=== PATIENT | male | born 1960 | race Hispanic/Latino ===

== ENCOUNTER 2019-04-09 12:28 | Inpatient (IN) | payer BC ==
[2019-04-09] MEDS ORDERED: NA CHLORIDE 0.9% 1,000 ML ONE (13:02)
[2019-04-09 13:22] LABS: Absolute Lymphocytes (CBC) 2.3 K/uL (0.7-4.9); Basophils % 0.2 % (0-1.3); Hematocrit 34.1 % (39.6-49.0); Lymphocytes % 17.8 % (15.3-44.8); MPV 8.6 fL (7.6-11.3); RBC Red Blood Cell Count 3.69 M/uL (4.33-5.43)
[2019-04-09 13:28] LABS: Protime INR 1.04
[2019-04-09 13:59] LABS: ALT/SGPT 19 U/L (12-78); AST/SGOT 21 U/L (15-37); Albumin 4.1 g/dL (3.4-5.0); Alkaline Phosphatase 83 U/L (45-117); BUN Blood Urea Nitrogen 65 mg/dL (7-18); Bicarbonate 16 mmol/L (21-32); Bilirubin Direct 0.1 mg/dL (0-0.2); Bilirubin Total 0.3 mg/dL (0.2-1.0); Glucose Level 96 mg/dL (74-106); Magnesium 2.5 mg/dL (1.8-2.4); NT PRO-BNP 94 pg/mL (<125); Protein, Total 9.7 g/dL (6.4-8.2); Sodium Level 135 mmol/L (136-145); Troponin (Emerg Dept Use Only) < 0.02 ng/mL (0.0-0.045)
[2019-04-09 14:00] LABS: Potassium 6.2 mmol/L (3.5-5.1)
--- NOTE | 2019-04-09 14:02 | RAD REPORT ---
EXAM DESCRIPTION: Deepti Single View04/09/2019 1:20 pm CLINICAL HISTORY: Congestion COMPARISON: November 2017 FINDINGS: Lung apices are hazy. Remainder lungs appear clear. Heart is normal size IMPRESSION: Lung apices are hazy. This probably is secondary to positioning. However, as an infiltra te can have this appearance it is recommended patient have an apical lordotic view of the chest for f urther evaluation
[2019-04-09] MEDS ORDERED: Caclcium Chloride 10% INJ SYR IV ONE (14:15)
[2019-04-09] MEDS ORDERED: NA CHLORIDE 0.9% 100 ML IV ONE (14:16)
[2019-04-09] MEDS ORDERED: INSULIN -REGULAR HUMAN 50 UNIT/0.5 ML ML ONE (14:29)
[2019-04-09] MEDS ORDERED: IPRATROPIUM BROM 0.5MG/2.5ML ONE (14:30)
[2019-04-09] MEDS ORDERED: D50W 25 GM/50 ML SYRINGE IV ONE (14:30)
[2019-04-09] MEDS ORDERED: ALBUTEROL 2.5 MG/3 ML NEB SOL ONE (14:30)
[2019-04-09] MEDS ORDERED: SOD POLYSTYREN SUL 15 GM/60 ML UCUP ONE (14:31)
[2019-04-09] MEDS ORDERED: D5W 1,000 ML with NA BICARB 8.4% 50 MEQ IV SCH ×2 (14:45)
--- NOTE | 2019-04-09 14:52 | EDPHYS ---
Physician Documentation [facility] Name: Darrius Barnes Age: 58 yrs Sex: Male : 1960 Arrival Date: 04/09/2019 Time: 12:32 Bed 17 Private MD: ED Physician Ramakrishna Ramon HPI: 04/09 14:50 This 58 yrs old Male presents to ER via Ambulatory with complaints of Blurred ma2 Vision, Weakness, Leg Pain. 14:50 Onset: The symptoms/episode began/occurred gradually, 2 day(s) ago. Associated signs ma2 and symptoms: Pertinent negatives: dizziness, nausea, seizure, visual field changes, loss of vision. Severity of symptoms: At their worst the symptoms were mild in the emergency department the symptoms are unchanged. Current symptoms: Currently, the patient is not experiencing any symptoms. Historical: - Allergies: 12:45 No Known Allergies; aa5 - PMHx: 12:45 Hypertension; "Kidney problems"; aa5 - PSHx: 12:45 Hernia repair; Appendectomy; Cholecystectomy; aa5 - Immunization history:: Adult Immunizations unknown. - Social history:: Smoking status: Patient/guardian denies using tobacco, the patient reports quitting approximately 10 years ago, Patient/guardian denies using alcohol, street drugs, The patient lives with family. - Ebola Screening: : No symptoms or risks identified at this time. - Family history:: not pertinent. ROS: 14:50 Constitutional: Negative for fever, chills, and weight loss, Cardiovascular: Negative ma2 for chest pain, palpitations, and edema, Respiratory: Negative for shortness of breath, cough, wheezing, and pleuritic chest pain, Abdomen/GI: Negative for abdominal pain, nausea, diarrhea, and constipation. 14:50 All other systems are negative. Exam: 14:50 Constitutional: This is a well developed, well nourished patient who is awake, alert, ma2 and in no acute distress. Chest/axilla: Normal chest wall appearance and motion. Nontender with no deformity. No lesions are appreciated. Cardiovascular: Regular rate and rhythm with a normal S1 and S2. No gallops, murmurs, or rubs. Normal PMI, no JVD. No pulse deficits. Respiratory: Lungs have equal breath sounds bilaterally, clear to auscultation and percussion. No rales, rhonchi or wheezes noted. No increased work of breathing, no retractions or nasal flaring. Abdomen/GI: Soft, non-tender, with normal bowel sounds. No distension or tympany. No guarding or rebound. No evidence of tenderness throughout. MS/ Extremity: Pulses equal, no cyanosis. Neurovascular intact. Full, normal range of motion. Neuro: Awake and alert, GCS 15, oriented to person, place, time, and situation. Cranial nerves II-XII grossly intact. Motor strength 5/5 in all extremities. Sensory grossly intact. Cerebellar exam normal. Normal gait. Vital Signs: 12:45 BP 102 / 68; Pulse 87; Resp 18 S; Temp 98.2; Pulse Ox 99% on R/A; Weight 97.52 kg (R); aa5 Height 5 ft. 4 in. (162.56 cm) (R); Pain 0/10; 14:00 BP 119 / 65; Pulse 71; Resp 16; Pulse Ox 100% on R/A; rv 15:00 BP 116 / 65; Pulse 68; Resp 16; Pulse Ox 98% on R/A; rv 15:30 BP 131 / 59; Pulse 91; Resp 19; Pulse Ox 100% on R/A; rv 16:40 BP 113 / 56; Pulse 86; Resp 17; Temp 98; Pulse Ox 100% on R/A; rv 12:45 Body Mass Index 36.90 (97.52 kg, 162.56 cm) aa5 MDM: 12:48 Patient medically screened. ma2 14:50 Data reviewed: vital signs, nurses notes, diagnostic data from outside facility. ma2 Response to treatment: the patient's symptoms have mildly improved after treatment. ED course: discussed with dr. ricketts . 04/09 13:03 Order name: Basic Metabolic Panel; Complete Time: 14:05 [facility] 04/09 13:03 Order name: CBC with Diff; Complete Time: 14: [facility] 04/09 13:03 Order name: LFT's; Complete Time: 14:05 [facility] 04/09 13:03 Order name: Magnesium; Complete Time: 14:05 [facility] 04/09 13:03 Order name: NT PRO-BNP; Complete Time: 14:05 [facility] 04/09 13:03 Order name: PT-INR [facility] 04/09 13:03 Order name: Troponin (emerg Dept Use Only); Complete Time: 14:05 ma2 04/09 13:03 Order name: XRAY Chest (1 view); Complete Time: 14:49 ma2 04/09 13:04 Order name: Glucose, Ancillary Testing; Complete Time: 14:05 EDMS 04/09 13:03 Order name: EKG; Complete Time: 13:04 ma2 04/09 13:03 Order name: Cardiac monitoring; Complete Time: 13:15 ma2 04/09 13:03 Order name: EKG - Nurse/Tech; Complete Time: 13:15 ma2 04/09 13:03 Order name: IV Saline Lock; Complete Time: 13:15 ma2 04/09 13:03 Order name: Labs collected and sent; Complete Time: 13:15 ma2 04/09 13:03 Order name: O2 Per Protocol; Complete Time: 13:15 ma2 04/09 13:03 Order name: O2 Sat Monitoring; Complete Time: 13:15 ma2 Administered Medications: 13:15 Drug: NS 0.9% 1000 ml Route: IV; Rate: 1 bolus; Site: right forearm; rv 14:51 Follow up: IV Status: Completed infusion; IV Intake: 1000ml rv 14:10 CANCELLED (other intervention used): NS 0.9% 1000 ml IV at 1 bolus Per protocol; 1000 snw mL bolus 14:15 CANCELLED (not available): Calcium Gluconate 1 grams IVPB once over 60 mins; (mix in NS snw 100 mL) 14:30 Drug: Calcium Chloride 1 grams Route: IVP; Site: right antecubital; rv 16:21 Follow up: Response: No adverse reaction rv 14:45 Drug: Albuterol - atroVENT (3:1) (2.5 mg - 0.5 mg) 3 ml Route: Nebulizer; rv 16:43 Follow up: Response: No adverse reaction rv 14:45 Drug: D5W with Sodium Bicarbonate 50 mEq/L 1000 ml Route: IV; Rate: 200 ml/hr; Site: rv right antecubital; 16:42 Follow up: IV Status: Infusion continued upon admission rv 14:51 Drug: D50W 50 ml Route: IVP; Site: left antecubital; rv 16:43 Follow up: Response: No adverse reaction rv 14:51 Drug: Insulin Regular Human 10 units {Co-Signature: ss (Sophia Mattson RN).} Route: IVP; rv Site: left antecubital; 16:43 Follow up: Response: No adverse reaction rv 14:52 Drug: Kayexalate 30 grams Route: PO; rv 16:43 Follow up: Response: No adverse reaction rv 14:53 Drug: NS 0.9% 500 ml Route: IV; Rate: bolus; Site: left antecubital; rv 16:42 Follow up: IV Status: Completed infusion rv Disposition: 04/09/19 14:52 Hospitalization ordered by Niraj Ricketts for Inpatient Admission. Preliminary diagnosis are Acute kidney failure, Hyperkalemia. - Bed requested for Telemetry/MedSurg (Inpatient). - Status is Inpatient Admission. rv - Condition is Stable. - Problem is new. - Symptoms are unchanged. UTI on Admission? No Signatures: Dispatcher [employer] EDMS Nori Morales RN RN dw Therrien, Shelly, BULLDOZER MECHANIC-C BULLDOZER MECHANIC-Csnw Asha Raines RN RN aa5 Ramakrishna Ramon MD MD ma2 Neal Foss RN RN rv Sophia brown Corrections: (The following items were deleted from the chart) 14:10 14:09 NS 0.9% 1000 ml IV at 1 bolus Per protocol; 1000 mL bolus ordered. snw snw 14:15 14:09 Calcium Gluconate 1 grams IVPB once over 60 mins; (mix in NS 100 mL) ordered. snw sn 14:51 14:51 04/09/2019 14:51 Discharged to Home. Impression: Acute kidney failure; ma2 Hyperkalemia. Condition is Stable. Forms are Medication Reconciliation Form, Thank You Letter, Antibiotic Education, Prescription Opioid Use. Follow up: Private Physician; When: Tomorrow; Reason: Continuance of care. ma2 16:15 14:52 Hospitalization Ordered by Niraj Ricketts MD for Inpatient Admission. Preliminary dw diagnosis is Acute kidney failure; Hyperkalemia. Bed requested for Telemetry/MedSurg (Inpatient). Status is Inpatient Admission. Condition is Stable. Problem is new. Symptoms are unchanged. UTI on Admission? No. ma2 16:43 16:15 04/09/2019 14:52 Hospitalization Ordered by Niraj Ricketts MD for Inpatient rv Admission. Preliminary diagnosis is Acute kidney failure; Hyperkalemia. Bed requested for Telemetry/MedSurg (Inpatient). Status is Inpatient Admission. Condition is Stable. Problem is new. Symptoms are unchanged. UTI on Admission? No. dw
--- NOTE | 2019-04-09 14:52 | ER ---
Nurse's Notes [facility] Name: Darrius Barnes Age: 58 yrs Sex: Male : 1960 Arrival Date: 04/09/2019 Time: 12:32 Bed 17 Private MD: Diagnosis: Acute kidney failure;Hyperkalemia Presentation: 04/09 12:42 Presenting complaint: Patient states: "I was at work when my vision started getting aa5 blurry, my arms and legs cramping, both of my arms felt heavy and I felt on my back like I was carrying something heavy". Pt reports symptoms lasted approximately 20 minutes. Pt states "I just feel weak right now". Transition of care: patient was not received from another setting of care. Onset of symptoms was March 2019. Risk Assessment: Do you want to hurt yourself or someone else? Patient reports no desire to harm self or others. Initial Sepsis Screen: Does the patient meet any 2 criteria? No. Patient's initial sepsis screen is negative. Does the patient have a suspected source of infection? No. Patient's initial sepsis screen is negative. Care prior to arrival: None. 12:42 Acuity: GARY 3 aa5 12:42 Method Of Arrival: Ambulatory aa5 Historical: - Allergies: 12:45 No Known Allergies; aa5 - PMHx: 12:45 Hypertension; "Kidney problems"; aa5 - PSHx: 12:45 Hernia repair; Appendectomy; Cholecystectomy; aa5 - Immunization history:: Adult Immunizations unknown. - Social history:: Smoking status: Patient/guardian denies using tobacco, the patient reports quitting approximately 10 years ago, Patient/guardian denies using alcohol, street drugs, The patient lives with family. - Ebola Screening: : No symptoms or risks identified at this time. - Family history:: not pertinent. Screenin:17 Abuse screen: Denies threats or abuse. Denies injuries from another. Nutritional rv screening: No deficits noted. Tuberculosis screening: No symptoms or risk factors identified. Fall Risk None identified. Assessment: 13:16 General: Appears in no apparent distress. comfortable, Behavior is calm, cooperative. rv Pain: Complains of pain in right leg and left leg. Neuro: Level of Consciousness is awake, alert, obeys commands, Oriented to person, place, time, situation. Cardiovascular: Patient's skin is warm and dry. Respiratory: Airway is patent. GI: No signs and/or symptoms were reported involving the gastrointestinal system. : No signs and/or symptoms were reported regarding the genitourinary system. EENT: No signs and/or symptoms were reported regarding the EENT system. Derm: Skin is intact. Musculoskeletal: Reports weakness in generalized. 15:01 Reassessment: Patient appears in no apparent distress at this time. Patient and/or rv family updated on plan of care and expected duration. Pain level reassessed. Patient is alert, oriented x 3, equal unlabored respirations, skin warm/dry/pink. Vital Signs: 12:45 BP 102 / 68; Pulse 87; Resp 18 S; Temp 98.2; Pulse Ox 99% on R/A; Weight 97.52 kg (R); aa5 Height 5 ft. 4 in. (162.56 cm) (R); Pain 0/10; 14:00 BP 119 / 65; Pulse 71; Resp 16; Pulse Ox 100% on R/A; rv 15:00 BP 116 / 65; Pulse 68; Resp 16; Pulse Ox 98% on R/A; rv 15:30 BP 131 / 59; Pulse 91; Resp 19; Pulse Ox 100% on R/A; rv 16:40 BP 113 / 56; Pulse 86; Resp 17; Temp 98; Pulse Ox 100% on R/A; rv 12:45 Body Mass Index 36.90 (97.52 kg, 162.56 cm) aa5 ED Course: 12:32 Patient arrived in ED. mr 12:44 Triage completed. aa5 12:44 Arm band placed on. aa5 12:48 Ramakrishna Ramon MD is Attending Physician. ma2 13:10 Neal Foss RN is Primary Nurse. rv 13:13 Inserted saline lock: 22 gauge in right forearm, using aseptic technique. Blood rv collected. 13:17 Patient has correct armband on for positive identification. Bed in low position. Call rv light in reach. Side rails up X 1. Adult w/ patient. gambling monitor on. Pulse ox on. NIBP on. 13:36 XRAY Chest (1 view) In Process Unspecified. EDMS 14:51 Niraj Ricketts MD is Hospitalizing Provider. ma2 15:03 Inserted saline lock: 18 gauge in left antecubital area, using aseptic technique. rv 16:40 No provider procedures requiring assistance completed. Patient admitted, IV remains in rv place. Administered Medications: 13:15 Drug: NS 0.9% 1000 ml Route: IV; Rate: 1 bolus; Site: right forearm; rv 14:51 Follow up: IV Status: Completed infusion; IV Intake: 1000ml rv 14:10 CANCELLED (other intervention used): NS 0.9% 1000 ml IV at 1 bolus Per protocol; 1000 snw mL bolus 14:15 CANCELLED (not available): Calcium Gluconate 1 grams IVPB once over 60 mins; (mix in NS snw 100 mL) 14:30 Drug: Calcium Chloride 1 grams Route: IVP; Site: right antecubital; rv 16:21 Follow up: Response: No adverse reaction rv 14:45 Drug: Albuterol - atroVENT (3:1) (2.5 mg - 0.5 mg) 3 ml Route: Nebulizer; rv 16:43 Follow up: Response: No adverse reaction rv 14:45 Drug: D5W with Sodium Bicarbonate 50 mEq/L 1000 ml Route: IV; Rate: 200 ml/hr; Site: rv right antecubital; 16:42 Follow up: IV Status: Infusion continued upon admission rv 14:51 Drug: D50W 50 ml Route: IVP; Site: left antecubital; rv 16:43 Follow up: Response: No adverse reaction rv 14:51 Drug: Insulin Regular Human 10 units {Co-Signature: ss (Sophia Mattson RN).} Route: IVP; rv Site: left antecubital; 16:43 Follow up: Response: No adverse reaction rv 14:52 Drug: Kayexalate 30 grams Route: PO; rv 16:43 Follow up: Response: No adverse reaction rv 14:53 Drug: NS 0.9% 500 ml Route: IV; Rate: bolus; Site: left antecubital; rv 16:42 Follow up: IV Status: Completed infusion rv Intake: 14:51 IV: 1000ml; Total: 1000ml. rv Outcome: 14:51 Discharge ordered by . kathy 14:52 Decision to Hospitalize by Provider. maJas 16:40 Admitted to Tele accompanied by nurse, via wheelchair, room 410, with chart, Report rv called to ROBIN DONALDSON 16:40 Condition: good 16:40 Instructed on the need for admit. 16:43 Patient left the ED. rv Signatures: Dispatcher [employer] Kaela McallisterAsha, RN RN aa5 Ramakrishna Ramon MD MD ma2 Neal Foss RN RN rv Mony Ward FORKLIFT MATERIAL HANDLER-Csnw Sophia Mattson RN ss Corrections: (The following items were deleted from the chart) 12:59 12:42 Presenting complaint: Patient states: "I was at work when my vision started aa5 getting blurry, my arms and legs cramping, both of my arms felt heavy and I felt on my back like I was carrying something heavy". Pt reports symptoms lasted approximately 20 minutes. aa5 16:41 16:40 Instructed on the need for transfer, rv rv
[2019-04-09] MEDS ORDERED: NA CHLORIDE 0.9% 500 ML ONE (14:54)
--- NOTE | 2019-04-09 15:29 | EKG ---
Test Date: 2019-04-09 Test Time: 13:12:36 [employer]oured [employer]ort: BEKAH MEASUREMENT RESULTS: Intervals: Rate: 79 OK: 138 QRSD: 76 QT: 344 QTc: 394 [place]: P: 61 OK: 138 QRS: 59 T: 68 INTERPRETIVE STATEMENTS: Normal sinus rhythm Normal ECG No previous ECG available for comparison Electronically Signed On 04-09-19 15:28:27 CDT by Manuel Carter
[2019-04-09] MEDS ORDERED: ONDANSETRON 4 MG/2 ML VIAL IV PRN (16:28)
[2019-04-09] MEDS ORDERED: ENOXAPARIN 40 MG/0.4 ML SQ SCH (17:00)
[2019-04-09 17:49] LABS: Urine Blood TRACE (NEG); Urine Glucose TRACE (NEG); Urine Protein TRACE (NEG)
--- NOTE | 2019-04-09 18:03 | P.HP ---
Certification for Inpatient Patient admitted to: Inpatient With expected LOS: >2 Midnights Practitioner: I am a practitioner with admitting privileges, knowledge of patient current condition, hospital course, and medical plan of care. Services: Services provided to patient in accordance with Admission requirements found in Title 42 Section 412.3 of the Code of Federal Regulations Patient History Date of Service: 04/09/19 Primary Care Provider: None Reason for admission: Generalized weakness History of Present Illness: This is a 58-year-old male with past medical history of CKD, hypertension admitted for generalized weakness. Per patient, he started having generalized weakness, blurring of the vision, stiff shoulder, cramps for the past 2 weeks that have been progressively worsening. He got really bad this morning therefore he came to the ER. He states that he had been working out in the heat and since is patient went a little blurry he decided to come to the ER. In the ER his blood pressure was 102/68, heart rate of 87, respirations of 18, afebrile at 98.2, satting 99% on room air. He has a BMI of 36.90. His labs were remarkable for a creatinine of 5.07, BUN of 65, potassium of 6.2 and a WBC count of 12.9. His magnesium was also elevated at 2.5. His chest x-ray showed haziness in the lung apices, could be secondary to position versus possible infiltrates. In the ER, he received a L bolus of IV fluids, Kayexalate, 10 units of insulin. At the time of my exam, he was alert oriented x3, in no acute distress and hemodynamically stable. He stated that his symptoms had drastically improved and he felt a lot better. He was admitted for acute renal failure along with hyperkalemia. Allergies No Known Allergies Allergy (Verified 04/09/19 17:17) Home medications list reviewed: Yes Home Medications: Lisinopril [Prinivil*] 1 tab PO DAILY 04/09/19 Losartan Potassium [Cozaar] 1 tab PO DAILY 04/09/19 - Past Medical/Surgical History Has patient received pneumonia vaccine in the past: No Diabetic: No -: hypertension -: kidney disease -: anemia -: appendectomy -: umbilical hernnia repair - Family History Mother -: Diabetes, Cancer Notes: breast cancer Father -: Heart disease, Hypertension Notes: emphysema, Ghislaine Gehrig's disease, shingles - Social History Smoking Status: Former smoker Alcohol use: Yes CD- Drugs: No Caffeine use: Yes Place of Residence: Home Review of Systems 10-point ROS is otherwise unremarkable Physical Examination - Vital Signs Temperature: 97.5 F Blood Pressure: 107/56 Pulse: 86 Respirations: 18 Pulse Ox (%): 100 - Physical Exam General: Alert, In no apparent distress, Oriented x3 HEENT: Atraumatic, PERRLA, Mucous membr. moist/pink, EOMI, Sclerae nonicteric Neck: Supple, 2+ carotid pulse no bruit, No LAD, Without JVD or thyroid abnormality Respiratory: Clear to auscultation bilaterally, Normal air movement Cardiovascular: Regular rate/rhythm, Normal S1 S2 Gastrointestinal: Normal bowel sounds, No tenderness Musculoskeletal: No tenderness Integumentary: No rashes Neurological: Normal gait, Normal speech, Normal strength at 5/5 x4 extr, Normal tone, Normal affect Lymphatics: No axilla or inguinal lymphadenopathy - Studies Laboratory Data (last 24 hrs) 04/09/19 13:13: PT 12.3, INR 1.04 04/09/19 13:13: WBC 12.9 H, Hgb 11.1 L, Hct 34.1 L, Plt Count 247 04/09/19 13:13: Sodium 135 L, Potassium 6.2 H*, BUN 65 H, Creatinine 5.07 H*, Glucose 96, Magnesium 2.5 H, Total Bilirubin 0.3, AST 21, ALT 19, Alkaline Phosphatase 83 Assessment and Plan - Problems (Diagnosis) (1) Acute renal failure Current Visit: Yes Status: Acute Qualifiers: Acute renal failure type: unspecified Qualified Code(s): N17.9 - Acute kidney failure, unspecified (2) Hyperkalemia Current Visit: Yes Status: Acute (3) Hypermagnesemia Current Visit: Yes Status: Acute (4) Dehydration Current Visit: Yes Status: Acute (5) Chronic kidney disease Current Visit: Yes Status: Acute Qualifiers: Chronic kidney disease stage: unspecified stage Qualified Code(s): N18.9 - Chronic kidney disease, unspecified (6) Hypertension Current Visit: Yes Status: Chronic Qualifiers: Hypertension type: essential hypertension Qualified Code(s): I10 - Essential (primary) hypertension (7) Obesity (BMI 35.0-39.9 without comorbidity) Current Visit: No Status: Chronic (8) Abnormal chest x-ray Current Visit: Yes Status: Acute - Plan Symptoms likely secondary to dehydration -will continue IV fluids, maintenance dose -recheck labs this evening and again in the morning -if renal function not improving, will consult nephrology -monitor closely in the hospital -will get physical therapy evaluation if needed. -Will restart home medications as tolerated. Will avoid nephrotoxic medications. -therefore will hold lisinopril at this time. -will repeat chest x-ray tomorrow to evaluate questionable lung haziness in apices DVT prophylaxis: Lovenox GI prophylaxis: None Diet: Renal Disposition: Pending symptomatic improvement Discharge Plan: Home Plan to discharge in: Greater than 2 days - Advance Directives Does patient have a Living Will: No Does patient have a Durable POA for Healthcare: No
[2019-04-09] MEDS: NA CHLORIDE 0.9% 1,000 ML IV SCH (18:48)
[2019-04-09 20:12] LABS: Magnesium 2.3 mg/dL (1.8-2.4); Potassium 4.9 mmol/L (3.5-5.1)
[2019-04-10] MEDS: NA CHLORIDE 0.9% 1,000 ML IV SCH ×3 (05:00→14:59)
[2019-04-10 05:45] LABS: Absolute Lymphocytes (CBC) 3.1 K/uL (0.7-4.9); Basophils % 0.9 % (0-1.3); Hematocrit 26.1 % (39.6-49.0); Lymphocytes % 38.3 % (15.3-44.8); MPV 9.1 fL (7.6-11.3); RBC Red Blood Cell Count 2.84 M/uL (4.33-5.43)
[2019-04-10 06:03] LABS: Bilirubin Total 0.3 mg/dL (0.2-1.0); Potassium 5.5 mmol/L (3.5-5.1); Protein, Total 7.4 g/dL (6.4-8.2)
[2019-04-10 06:31] LABS: RBC Red Blood Cell Count 2.85 M/uL (4.33-5.43)
[2019-04-10 07:43] LABS: Ferritin 248.2 ng/mL (26-388); Folic Acid, (Folate) 19.1 ng/mL (3.1-17.5)
--- NOTE | 2019-04-10 08:37 | RAD REPORT ---
EXAM DESCRIPTION: RAD - Chest Pa And Lat (2 Views) - 04/10/2019 6:24 am CLINICAL HISTORY: SOB Chest pain. COMPARISON: Chest Single View dated 04/09/2019; Chest Pa And Lat (2 Views) dated 11/13/2017 FINDINGS: The lungs are clear. The heart is normal in size. No displaced fractures. IMPRESSION: No acute or concerning finding suspected.
[2019-04-10] MEDS ORDERED: LOSARTAN POTASSIUM 50 MG TABLET PO SCH (09:00)
[2019-04-10] MEDS ORDERED: HOME MED 1 EA UNK (Losartan Potassium [Cozaar] 1 TAB) PO SCH (09:00)
--- NOTE | 2019-04-10 14:14 | RAD REPORT ---
EXAM DESCRIPTION: US - Renal Ultrasound-Complete - 04/10/2019 2:08 pm CLINICAL HISTORY: JARED Flank pain COMPARISON: Renal Ultrasound-Complete dated 03/27/2018 FINDINGS: Both kidneys are normal in size, shape and echotexture. The right kidney measures 10.5 x 5.0 x 4.1 cm. No hydronephrosis, focal mass or perinephric fluid. The left kidney measures 10.8 x 5.7 x 4.8 cm. No hydronephrosis, focal mass or perinephric fluid. The urinary bladder is incompletely distended without gross abnormality seen. IMPRESSION: Unremarkable renal sonogram.
[2019-04-10] MEDS ORDERED: NA CHLORIDE 0.9% 1,000 ML IV SCH (15:00)
[2019-04-10 16:01] LABS: Urine Protein/Creatinine Ratio 0.35 ratio (<0.15)
--- NOTE | 2019-04-10 17:40 | P.PN ---
Subjective Date of Service: 04/10/19 Primary Care Provider: None Chief Complaint: Generalized weakness Subjective: No C/O voiced, Improving Patient seen and examined at bedside. No family at bedside. Chart reviewed and case discussed with nursing staff. Review of Systems 10-point ROS is otherwise unremarkable Physical Examination - Vital Signs Temperature: 97.8 F Blood Pressure: 114/52 Pulse: 76 Respirations: 16 Pulse Ox (%): 100 - Physical Exam General: Alert, In no apparent distress, Obese HEENT: Atraumatic, PERRLA, EOMI Neck: Supple, JVD not distended Respiratory: Clear to auscultation bilaterally, Normal air movement Cardiovascular: Regular rate/rhythm, Normal S1 S2 Gastrointestinal: Normal bowel sounds, No tenderness Musculoskeletal: No tenderness Integumentary: No rashes Neurological: Normal speech, Normal tone, Normal affect Lymphatics: No axilla or inguinal lymphadenopathy Assessment And Plan - Current Problems (Diagnosis) (1) Acute renal failure Current Visit: Yes Status: Acute Qualifiers: Acute renal failure type: unspecified Qualified Code(s): N17.9 - Acute kidney failure, unspecified (2) Hyperkalemia Current Visit: Yes Status: Acute (3) Hypermagnesemia Current Visit: Yes Status: Acute (4) Dehydration Current Visit: Yes Status: Acute (5) Chronic kidney disease Current Visit: Yes Status: Acute Qualifiers: Chronic kidney disease stage: unspecified stage Qualified Code(s): N18.9 - Chronic kidney disease, unspecified (6) Hypertension Current Visit: Yes Status: Chronic Qualifiers: Hypertension type: essential hypertension Qualified Code(s): I10 - Essential (primary) hypertension (7) Obesity (BMI 35.0-39.9 without comorbidity) Current Visit: No Status: Chronic (8) Abnormal chest x-ray Current Visit: Yes Status: Acute - Plan Symptoms due to dehydration secondary to heat exhaustion, use of a DAVID inhibitor /ARB -will continue IV fluids, maintenance dose -nephrology consulted, recommendations appreciated -hold losartan and lisinopril at this time due to blood pressure being on the lower and. Patient currently asymptomatic DVT prophylaxis: Lovenox GI prophylaxis: None Diet: Renal Disposition: Pending symptomatic improvement and renal workup Discharge Plan: Home Plan to discharge in: 48 Hours
--- NOTE | 2019-04-10 20:28 | CON ---
Date of Consultation: 04/10/2019 Reason For Consultation: Elevated BUN and creatinine, hyperkalemia. History Of Present Illness: This is a pleasant 58-year-old gentleman, well known to me from the [facility] with significant past medical history of chronic kidney disease secondary to hypertension, nephros clerosis, baseline creatinine around 1.7, hypertension, hyperlipidemia, patient apparently working ou tside, start having cramp, feeling tired with a blooded lesion, for that [facility] in the hospital found elevated BUN and creatinine with hyperkalemia, started on hydration. The patient apparently being on lisinopril and losartan. Patient also had diarrhea for the last couple o f days after drinking milk outside. Allergies: NO KNOWN DRUG ALLERGY. Home Medications: 1.Lisinopril. 2.Losartan. Past Medical History: 1.Hypertension. 2.Chronic kidney disease, baseline creatinine 1.7. Past Surgical History: Appendectomy, hernia repair. Family History: Positive for diabetes, hypertension. Social History: Ex-smoker. Denied alcohol. Denied drug abuse. Review of Systems: Head and Neck: Head lightheaded. GI: Has nausea, vomiting. Has diarrhea. : No polyuria. No dysuria. No hematuria. ARCHITECTURE PROFESSOR: Not applicable. Respiratory: No shortness of breath. Cardiovascular: Has syncope. Endocrine: No polydipsia. Skin: No rash. Neuro: No neuropathy. Has weakness. Musculoskeletal: Has muscle cramps. Physical Examination: General: When I saw the patient lying in bed comfortable. Vital Signs: Blood pressure still on the lower side 89/50, pulse of 88, afebrile. Chest: Clear to auscultation. Heart: S1, S2. Regular. Abdomen: Soft, nontender. Extremities: No edema. Neurologic: Alert, oriented x3. Nonfocal. Laboratory Data: Upon presentation, potassium 6.2, creatinine of 5 with GFR of 12. Patient was star amrik on hydration. Previous lab data documented in 2018 in March, creatinine 1.4 with GFR of 52. La test lab data; sodium 141, potassium 5.5, bicarb 20, BUN 64, creatinine 3, GFR of 20, calcium 8.3, TS AT of 28, protein of 240, folate of 19, TSH 2. Vitamin D25 is pending. Urinalysis negative for infe ction. Renal ultrasound showing 10.5/10.8. Assessment And Plan: 1.Acute kidney injury secondary to dehydration, secondary of heat exertion superimposed with the poo r perfusion acute tubular necrosis and the DAVID inhibitor/ARB. Normal size kidney. Proteinuric, nonn ephrotic. Patient's blood pressure still on the lower side. I am going to bolus the patient on 1 L again and we will increase IV fluid to 125, and we will follow up the patient. 2.Heat exertion as above. 3.Hyperkalemia secondary to renal failure, superimposed with DAVID inhibitor and ARB, recovered. Cont inue aggressive hydration. I can give the patient the cocktail again. 4.Anemia of iron deficiency anemia. Given the presence of hyperkalemia, I again go ahead and check for fecal occult. 5.Hypertension, currently blood pressure on the lower side, especially with the presence of acute ki dney injury and hyperkalemia. Hold DAVID inhibitor and ARB for the time being. We will follow up. LESVIA Voice ID: [id number] Report ID: [id number]
[2019-04-11] MEDS: NA CHLORIDE 0.9% 1,000 ML IV SCH ×3 (05:23→15:00)
[2019-04-11 06:05] LABS: Absolute Lymphocytes (CBC) 2.6 K/uL (0.7-4.9); Basophils % 0.7 % (0-1.3); Hematocrit 24.5 % (39.6-49.0); Lymphocytes % 40.6 % (15.3-44.8); MPV 9.1 fL (7.6-11.3); RBC Red Blood Cell Count 2.63 M/uL (4.33-5.43)
[2019-04-11 06:45] LABS: Albumin 2.6 g/dL (3.4-5.0); Bilirubin Total 0.2 mg/dL (0.2-1.0); Ferritin 221.4 ng/mL (26-388); Folic Acid, (Folate) 12.8 ng/mL (3.1-17.5); Phosphorus 2.5 mg/dL (2.5-4.9); Potassium 5.2 mmol/L (3.5-5.1); Protein, Total 6.5 g/dL (6.4-8.2); Uric Acid 5.8 mg/dL (3.5-7.2)
--- NOTE | 2019-04-11 12:37 | P.PN ---
Subjective Date of Service: 04/11/19 Primary Care Provider: None Chief Complaint: Generalized weakness Subjective: Improving pt with JARED and hyperkalmeia was on DAVID and ARB Today feels better Cr near baseline hyperchloremia due to NS anemia , likely dilutional Pt is cleared for discharge from nephrology point of view To F/U with nephrology clinic in2-3 wks Physical Examination - Vital Signs Temperature: 97.8 F Blood Pressure: 114/52 Pulse: 76 Respirations: 16 Pulse Ox (%): 100 - Physical Exam General: In no apparent distress, Oriented x3, Obese HEENT: Atraumatic Neck: Supple, Without JVD or thyroid abnormality Respiratory: Clear to auscultation bilaterally, Normal air movement Cardiovascular: No edema, Regular rate/rhythm, Normal S1 S2, No gallops, No rubs , No murmurs Gastrointestinal: Normal bowel sounds, Soft and benign Musculoskeletal: No swelling Integumentary: No rashes Assessment And Plan - Current Problems (Diagnosis) (1) Acute renal failure Current Visit: Yes Status: Acute Qualifiers: Acute renal failure type: unspecified Qualified Code(s): N17.9 - Acute kidney failure, unspecified (2) Dehydration Current Visit: Yes Status: Acute (3) Hyperkalemia Current Visit: Yes Status: Acute (4) Hypertension Current Visit: Yes Status: Chronic Qualifiers: Hypertension type: essential hypertension Qualified Code(s): I10 - Essential (primary) hypertension - Plan Acute kidney injury due to dehydration Cr improved , near baseline on IVF US no hydro cont to hold DAVID and ARBs HTN controlled now cont to hold DAVID and ARBs Hypercholremia saline induced hyperkalmeia resolved Pt is cleared for discharge from nephrology point of view To F/U with nephrology clinic in2-3 wks
--- NOTE | 2019-04-11 15:02 | P.DS ---
Admission Date: 04/09/19 Discharge Date: 04/11/19 Primary Care Provider: None Disposition: ROUTINE DISCHARGE Discharge Condition: GOOD Reason for Admission: Generalized weakness Consultations: Nephrology - Problems (1) Acute renal failure Current Visit: Yes Status: Acute Qualifiers: Acute renal failure type: unspecified Qualified Code(s): N17.9 - Acute kidney failure, unspecified (2) Hyperkalemia Current Visit: Yes Status: Acute (3) Hypermagnesemia Current Visit: Yes Status: Acute (4) Dehydration Current Visit: Yes Status: Acute (5) Chronic kidney disease Current Visit: Yes Status: Acute Qualifiers: Chronic kidney disease stage: unspecified stage Qualified Code(s): N18.9 - Chronic kidney disease, unspecified (6) Hypertension Current Visit: Yes Status: Chronic Qualifiers: Hypertension type: essential hypertension Qualified Code(s): I10 - Essential (primary) hypertension (7) Obesity (BMI 35.0-39.9 without comorbidity) Current Visit: No Status: Chronic (8) Abnormal chest x-ray Current Visit: Yes Status: Acute Brief History of Present Illness: This is a 58-year-old male with past medical history of CKD, hypertension admitted for generalized weakness. Per patient, he started having generalized weakness, blurring of the vision, stiff shoulder, cramps for the past 2 weeks that have been progressively worsening. He got really bad this morning therefore he came to the ER. He states that he had been working out in the heat and since is patient went a little blurry he decided to come to the ER. In the ER his blood pressure was 102/68, heart rate of 87, respirations of 18, afebrile at 98.2, satting 99% on room air. He has a BMI of 36.90. His labs were remarkable for a creatinine of 5.07, BUN of 65, potassium of 6.2 and a WBC count of 12.9. His magnesium was also elevated at 2.5. His chest x-ray showed haziness in the lung apices, could be secondary to position versus possible infiltrates. In the ER, he received a L bolus of IV fluids, Kayexalate, 10 units of insulin. At the time of my exam, he was alert oriented x3, in no acute distress and hemodynamically stable. He stated that his symptoms had drastically improved and he felt a lot better Hospital Course: He was admitted for acute renal failure along with hyperkalemia. Nephrology was consulted. He was hydrated with IV fluids. his blood pressure medications were both held. He did otherwise well throughout the stay. Prior to discharge , he was alert oriented x3, in no acute distress and hemodynamically stable. He was ambulating without any concerns, tolerating an oral diet. His creatinine was now improved to 1.39. He still was hyper case we made to 5.2, this is likely secondary to his lisinopril and losartan. He was also hyperchloremia, likely secondary to IV fluids. He was then cleared for discharge per nephrology. His diagnoses and treatment plan was explained to him , all questions were answered and he verbalized understanding. He was then discharged home in a safe and stable manner with instructions to follow up with nephrology in 1 week. He was also instructed to not take lisinopril or losartan after discharge until he sees a group exercise class instructor. Vital Signs/Physical Exam: Temp Pulse Resp BP Pulse Ox 97.8 F 76 16 114/52 L 100 04/11/19 12:37 04/11/19 12:37 04/11/19 12:37 04/11/19 12:37 04/11/19 12:37 General: Alert, In no apparent distress, Oriented x3 HEENT: Atraumatic, PERRLA, EOMI Neck: Supple, JVD not distended Respiratory: Clear to auscultation bilaterally, Normal air movement Cardiovascular: Regular rate/rhythm, Normal S1 S2 Gastrointestinal: Normal bowel sounds, No tenderness Musculoskeletal: No tenderness Integumentary: No rashes Neurological: Normal speech, Normal tone, Normal affect Lymphatics: No axilla or inguinal lymphadenopathy Laboratory Data at Discharge: WBC 6.5 K/uL (4.3-10.9) D 04/11/19 05:16 Hgb 8.1 g/dL (13.6-17.9) L 04/11/19 05:16 Hct 24.5 % (39.6-49.0) L 04/11/19 05:16 Plt Count 141 K/uL (152-406) L D 04/11/19 05:16 PT 12.3 SECONDS (9.5-12.5) 04/09/19 13:13 INR 1.04 04/09/19 13:13 Sodium 144 mmol/L (136-145) 04/11/19 05:16 Potassium 5.2 mmol/L (3.5-5.1) H 04/11/19 05:16 BUN 38 mg/dL (7-18) H D 04/11/19 05:16 Creatinine 1.68 mg/dL (0.55-1.3) H D 04/11/19 05:16 Glucose 86 mg/dL (74-106) 04/11/19 05:16 Uric Acid 5.8 mg/dL (3.5-7.2) 04/11/19 05:16 Phosphorus 2.5 mg/dL (2.5-4.9) 04/11/19 05:16 Magnesium 2.3 mg/dL (1.8-2.4) 04/09/19 19:40 Total Bilirubin 0.2 mg/dL (0.2-1.0) 04/11/19 05:16 AST 15 U/L (15-37) 04/11/19 05:16 ALT 16 U/L (12-78) 04/11/19 05:16 Alkaline Phosphatase 56 U/L (45-117) 04/11/19 05:16 Patient Discharge Instructions: Please follow up with your primary care physician in 2-3 days. Please follow up with Kidney specialist in 1-2 weeks. Information provided to you. Please call their clinic to make an appointment. Discontinue both of your blood pressure medications (lisinopril and Losartan) till you have seen the kidney specialist. Return to the ER for worsening symptoms. Diet: Renal Activity: Ad valentino Followup: Norris Chao MD [ACTIVE - CAN ADMIT] - 1-2 Weeks (call to schedule appoinmtent) Time spent managing pt's care (in minutes): 45
[2019-04-15 09:47] LABS: Vitamin D 1,25-Dihydroxy Total 17 pg/mL (18-72); Vitamin D,1,25-OH2, D2 <8 pg/mL
[2019-04-15 13:23] LABS: Albumin, (SPE) 2.9 g/dL (3.8-4.8); Alpha-1-Globulins 0.3 g/dL (0.2-0.3); Alpha-2-Globulins 0.5 g/dL (0.5-0.9); Gamma Globulins 1.7 g/dL (0.8-1.7); INTERPRETATION REPORT
== END 2019-04-11 15:30 | disposition home or self-care (01) | DRG 682 ==
LOC: ER 12:28 → ERHOLD 15:08 → 4TH 16:25
PROVIDERS: ADMIT Family Medicine; ATTEND Family Medicine
DX: I12.9 Hypertensive chronic kidney disease with stage 1 through stage 4 chronic kidney disease, or unspecified chronic kidney disease (principal); N17.0 Acute kidney failure with tubular necrosis; N18.9 Chronic kidney disease, unspecified; E87.5 Hyperkalemia; E66.9 Obesity, unspecified; Z68.35 Body mass index [BMI] 35.0-35.9, adult; E83.41 Hypermagnesemia; D50.9 Iron deficiency anemia, unspecified; R93.89 Abnormal findings on diagnostic imaging of other specified body structures; E87.8 Other disorders of electrolyte and fluid balance, not elsewhere classified
CPT/HCPCS: 36415; 71045; 71046; 76770; 80048; 80053; 80069; 80076; 81003; 82274; 82570; 82607; 82652; 82728; 82746; 82962; 83010; 83540; 83615; 83735; 83880; 83970; 84156; 84165; 84466; 84484; 84550; 85025; 85044; 85610; 93005; 94640; 94760; 99285; J1650; J7030

== ENCOUNTER 2020-10-22 09:46 | Emergency (ER) | payer BC ==
[2020-10-22] MEDS ORDERED: CEFTRIAXONE/SWI 1gm 1 GM/10 ML SYR ONE (10:36)
[2020-10-22] MEDS ORDERED: NA CHLORIDE 0.9% 2,000 ML ONE (10:36)
[2020-10-22] MEDS ORDERED: ACETAMINOPHEN 325 MG TABLET ONE (10:36)
[2020-10-22 10:55] LABS: Absolute Lymphocytes (CBC) 0.8 K/uL (0.7-4.9); Basophils % 0.1 % (0-1.3); Hematocrit 34.2 % (39.6-49.0); Lymphocytes % 9.7 % (15.3-44.8); MPV 8.8 fL (7.6-11.3); RBC Red Blood Cell Count 3.97 M/uL (4.33-5.43)
--- NOTE | 2020-10-22 11:01 | RAD REPORT ---
EXAM DESCRIPTION: RAD - Chest Single View - 10/22/2020 10:42 am CLINICAL HISTORY: SOB Chest pain. COMPARISON: Chest Pa And Lat (2 Views) dated 04/10/2019; Chest Single View dated 04/09/2019; Chest Pa And Lat (2 Views) dated 11/13/2017 FINDINGS: Portable technique limits examination quality. Mild opacities are present bilaterally greatest in the lung bases. This can indicate mild bronchitis or viral infection. The heart is normal in size.
[2020-10-22 12:17] LABS: ALT/SGPT 96 U/L (12-78); AST/SGOT 139 U/L (15-37); Albumin 2.8 g/dL (3.4-5.0); Alkaline Phosphatase 155 U/L (45-117); Amylase 39 U/L (25-115); BUN Blood Urea Nitrogen 11 mg/dL (7-18); Bicarbonate 24 mmol/L (21-32); Bilirubin Direct 0.3 mg/dL (0-0.2); Bilirubin Total 0.6 mg/dL (0.2-1.0); Creatine Phosphokinase 310 U/L (39-308); Glucose Level 108 mg/dL (74-106); Lipase 138 U/L (73-393); Potassium 3.7 mmol/L (3.5-5.1); Protein, Total 8.7 g/dL (6.4-8.2); Sodium Level 132 mmol/L (136-145); Troponin (Emerg Dept Use Only) < 0.02 ng/mL (0.0-0.045)
[2020-10-22 13:01] LABS: SARS-COV-2 RT PCR POSITIVE (NEGATIVE)
[2020-10-22] MEDS ORDERED: dexAMETHasone 10 MG/ML VIAL ONE (13:21)
--- NOTE | 2020-10-22 13:26 | ER ---
Nurse's Notes [facility] Name: Darrius Barnes Age: 59 yrs Sex: Male : 1960 Arrival Date: 10/22/2020 Time: 09:48 Bed 16 Private MD: Diagnosis: Coronavirus infection, unspecified Presentation: 10/22 09:55 Chief complaint: Patient states: Sent here by [facility] for SOB, pt states aa5 "they told me my oxygen was 94% and I needed to come here". pt c/o cough and SOB that began Sunday. Pt reports Negative COVID-19 test at [facility] today. Coronavirus screen: cough unrelated to allergies, Client presents with at least one sign or symptom that may indicate coronavirus-19. Standard/surgical mask placed on the client. Provider contacted for isolation considerations. Ebola Screen: Patient negative for fever greater than or equal to 101.5 degrees Fahrenheit, and additional compatible Ebola Virus Disease symptoms. Initial Sepsis Screen: Does the patient meet any 2 criteria? RR > 20 per min. HR > 90 bpm. Yes Does the patient have a suspected source of infection? Yes:. Risk Assessment: Do you want to hurt yourself or someone else? Patient reports no desire to harm self or others. Onset of symptoms was October 2020. 09:55 Acuity: GARY 2 aa5 09:55 Method Of Arrival: Ambulatory aa5 Triage Assessment: 14:03 General: Appears in no apparent distress. Behavior is calm, cooperative, appropriate ll1 for age. Pain: Denies pain. Respiratory: Reports shortness of breath cough that is Airway is patent Trachea midline Respiratory effort is even, unlabored, Respiratory pattern is regular, symmetrical, Onset: The symptoms/episode began/occurred 1+ week, the patient has mild shortness of breath. Historical: - Allergies: :58 No Known Allergies; aa5 - Home Meds: :58 Unknown BP medication [Active]; aa5 - PMHx: :58 "Kidney problems"; Hypertension; aa5 - PSHx: :58 Hernia repair; Appendectomy; Cholecystectomy; aa5 - Immunization history:: Adult Immunizations unknown. - Social history:: Smoking status: Patient denies any tobacco usage or history of. Screenin:41 Abuse screen: Denies threats or abuse. Nutritional screening: No deficits noted. ll1 Tuberculosis screening: No symptoms or risk factors identified. Fall Risk IV access (20 points). Total Almazan Fall Scale indicates No Risk (0-24 pts). Assessment: 11:00 Reassessment: No changes from previously documented assessment. Patient and/or family ll1 updated on plan of care and expected duration. Pain level reassessed. Patient is alert, oriented x 3, equal unlabored respirations, skin warm/dry/pink. 12:00 Reassessment: No changes from previously documented assessment. Patient and/or family ll1 updated on plan of care and expected duration. Pain level reassessed. 13:00 Reassessment: No changes from previously documented assessment. Patient and/or family ll1 updated on plan of care and expected duration. Pain level reassessed. 14:04 Cardiovascular: No deficits noted. Rhythm is regular. Respiratory: Airway is patent ll1 Trachea midline Respiratory effort is even, unlabored, Respiratory pattern is regular, symmetrical, Breath sounds are clear bilaterally. Vital Signs: 09:55 BP 139 / 68; Pulse 115; Resp 26 S; Temp 101.1(O); Pulse Ox 95% on R/A; Weight 95.25 kg aa5 (R); Height 5 ft. 2 in. (157.48 cm) (R); 11:40 BP 113 / 62; Pulse 90; Resp 20; Temp 99.1; Pulse Ox 95% ; ll1 14:07 BP 119 / 66; Pulse 94; Resp 19; Pulse Ox 95% on R/A; ll1 09:55 Body Mass Index 38.41 (95.25 kg, 157.48 cm) aa5 ED Course: 09:48 Patient arrived in ED. ds1 09:48 Arm band placed on. aa5 09:57 Triage completed. aa5 10:00 Jose Dai PA is PHCP. jmm 10:00 Rene Billy MD is Attending Physician. jmm 10:00 Patient has correct armband on for positive identification. Placed in gown. Bed in low ll1 position. Call light in reach. Side rails up X 1. Pulse ox on. NIBP on. 10:16 Inserted saline lock: 20 gauge in left antecubital area, using aseptic technique. Blood ss collected. 10:17 Musa, Lynsay, RN is Primary Nurse. ll1 10:42 Chest Single View XRAY In Process Unspecified. EDMS 14:03 No provider procedures requiring assistance completed. IV discontinued, intact, ll1 bleeding controlled, No redness/swelling at site. Pressure dressing applied. Administered Medications: 10:30 Drug: NS 0.9% (30 ml/kg) 30 ml/kg Route: IV; Rate: bolus; Site: left antecubital; 1 14:07 Follow up: Response: No adverse reaction; RASS: Alert and Calm (0); IV Status: ll1 Completed infusion; IV Intake: 2000ml 10:30 Drug: Rocephin - (cefTRIAXone) 1 grams Route: IVPB; Infused Over: 30 mins; Site: left ll1 antecubital; 14:06 Follow up: Response: No adverse reaction; RASS: Alert and Calm (0); IV Status: ll1 Completed infusion; IV Intake: 10ml 10:30 Drug: Tylenol 650 mg Route: PO; ll1 14:06 Follow up: Response: No adverse reaction; RASS: Alert and Calm (0) 1 13:07 Drug: Decadron - Dexamethasone 10 mg Route: IVP; Site: left antecubital; 1 14:06 Follow up: Response: No adverse reaction; RASS: Alert and Calm (0) 1 Intake: 14:06 IV: 10ml; Total: 10ml. ll1 14:07 IV: 2000ml; Total: 2010ml. 1 Outcome: 13:26 Discharge ordered by . janice 14:05 Discharged to home ambulatory. 1 14:05 Condition: stable 14:05 Discharge instructions given to patient, Instructed on discharge instructions, follow up and referral plans. medication usage, Demonstrated understanding of instructions, follow-up care, medications, Prescriptions given X 3. 14:07 Patient left the ED. 1 Signatures: Dispatcher [employer] EDMS Jose Dai PA PA jmm Sanford, Demi ds1 Asha Raines RN RN aa5 Sophia Mattson RN RN Kristie Echavarria RN RN 1
--- NOTE | 2020-10-22 13:26 | EDPHYS ---
Physician Documentation [facility] Name: Darrius Barnes Age: 59 yrs Sex: Male : 1960 Arrival Date: 10/22/2020 Time: 09:48 Bed 16 Private MD: ED Physician Rene Billy HPI: 10/22 10:12 This 59 yrs old Male presents to ER via Ambulatory with complaints of jmm Shortness Of Breath. 10:12 The patient has shortness of breath with light activity. Onset: The symptoms/episode jmm began/occurred today. Duration: The symptoms are continuous. The patient's shortness of breath is aggravated by light activity. Associated signs and symptoms: Pertinent positives: fever. This is a 59 year old male with a history of htn that presents to the ED with complaints of flank pain bilaterally, fever, chills beginning approx 2 days ago. Was tested for covid yesterday with a negative result. Patient states symptoms worsened today with shortness of breath. Denies vomiting, abdominal pain, dysuria. . Historical: - Allergies: 09:58 No Known Allergies; aa5 - Home Meds: 09:58 Unknown BP medication [Active]; aa5 - PMHx: 09:58 "Kidney problems"; Hypertension; aa5 - PSHx: 09:58 Hernia repair; Appendectomy; Cholecystectomy; aa5 - Immunization history:: Adult Immunizations unknown. - Social history:: Smoking status: Patient denies any tobacco usage or history of. ROS: 10:12 Constitutional: Positive for body aches, fever. jmm 10:12 Respiratory: Positive for cough, shortness of breath. 10:12 Back: Positive for flank pain, bilaterally. 10:12 All other systems are negative. Exam: 10:12 Constitutional: This is a well developed, well nourished patient who is awake, alert, jmm and in no acute distress. Head/Face: atraumatic. Eyes: EOMI, no conjunctival erythema appreciated ENT: Moist Mucus Membranes Neck: Trachea midline, Supple Chest/axilla: Normal chest wall appearance and motion. Cardiovascular: Regular rate and rhythm. No edema appreciated Respiratory: Normal respirations, no respiratory distress appreciated Abdomen/GI: Non distended, soft Back: Normal ROM Skin: General appearance color normal MS/ Extremity: Moves all extremities, no obvious deformities appreciated, no edema noted to the lower extremities Neuro: Awake and alert, normal gait Psych: Behavior is normal, Mood is normal, Patient is cooperative and pleasant 10:48 ECG was reviewed by the Attending Physician. [facility] Vital Signs: 09:55 BP 139 / 68; Pulse 115; Resp 26 S; Temp 101.1(O); Pulse Ox 95% on R/A; Weight 95.25 kg aa5 (R); Height 5 ft. 2 in. (157.48 cm) (R); 11:40 BP 113 / 62; Pulse 90; Resp 20; Temp 99.1; Pulse Ox 95% ; ll1 14:07 BP 119 / 66; Pulse 94; Resp 19; Pulse Ox 95% on R/A; ll1 09:55 Body Mass Index 38.41 (95.25 kg, 157.48 cm) aa5 MDM: 10:08 Patient medically screened. [facility] 13:23 Data reviewed: vital signs, nurses notes. Counseling: I had a detailed discussion with [facility] the patient and/or guardian regarding: the historical points, exam findings, and any diagnostic results supporting the discharge/admit diagnosis, lab results, radiology results, the need for outpatient follow up, to return to the emergency department if symptoms worsen or persist or if there are any questions or concerns that arise at home. ED course: Patient is alert and non toxic in appearance in the ED. No signs of resp distress. patient is otherwise given strict return precautions. Patient understood and agrees with the plan of care. . 10/22 10:08 Order name: Amylase, Serum [facility] 10/22 10:08 Order name: Basic Metabolic Panel [facility] 10/22 10:08 Order name: Blood Culture Adult (2) [facility] 10/22 10:08 Order name: CBC with Diff [facility] 10/22 10:08 Order name: Ckmb [facility] 10/22 10:08 Order name: CPK [facility] 10/22 10:08 Order name: Lactate [facility] 10/22 10:08 Order name: LFT's; Complete Time: 12:29 [facility] 10/22 10:08 Order name: Lipase; Complete Time: 12:29 [facility] 10/22 10:08 Order name: Procalcitonin; Complete Time: 11:41 [facility] 10/22 10:08 Order name: Troponin (emerg Dept Use Only); Complete Time: 12:29 [facility] 10/22 10:08 Order name: Chest Single View XRAY; Complete Time: 11:05 [facility] 10/22 10:09 Order name: Amylase; Complete Time: 12:29 [facility] 10/22 10:09 Order name: Basic Metabolic Panel; Complete Time: 12:29 [facility] 10/22 10:09 Order name: Blood Culture [facility] 10/22 10:09 Order name: CBC with Automated Diff; Complete Time: 11:05 [facility] 10/22 10:09 Order name: CKMB Creatine Kinase MB; Complete Time: 12:29 [facility] 10/22 10:09 Order name: Creatine Phosphokinase; Complete Time: 12:29 [facility] 10/22 10:09 Order name: Lactate; Complete Time: 13:13 [facility] 10/22 10:27 Order name: Strep [facility] 10/22 10:27 Order name: Group A Streptococcus Rapid Sc [facility] 10/22 13:01 Order name: COVID-19/FLU A+B; Complete Time: 13:03 [facility] 10/22 10:08 Order name: Accucheck [facility] 10/22 10:08 Order name: Cardiac monitoring; Complete Time: 11:15 [facility] 10/22 10:08 Order name: EKG - Nurse/Tech; Complete Time: 11:16 [facility] 10/22 10:08 Order name: IV Saline Lock - Large Bore; Complete Time: 10:13 [facility] 10/22 10:08 Order name: Labs collected and sent; Complete Time: 11:16 [facility] 10/22 10:08 Order name: O2 Per Protocol; Complete Time: 11:16 [facility] 10/22 10:08 Order name: O2 Sat Monitoring; Complete Time: 11:16 [facility] 10/22 12:22 Order name: EKG Electrocardiogram; Complete Time: 13:12 EDMS EC:48 Rate is 96 beats/min. Rhythm is regular. QRS [place] is Normal. MS interval is normal. QRS jmm interval is normal. QT interval is normal. No Q waves. T waves are Normal. No ST changes noted. Reviewed by me. Administered Medications: 10:30 Drug: NS 0.9% (30 ml/kg) 30 ml/kg Route: IV; Rate: bolus; Site: left antecubital; ll1 14:07 Follow up: Response: No adverse reaction; RASS: Alert and Calm (0); IV Status: ll1 Completed infusion; IV Intake: 2000ml 10:30 Drug: Rocephin - (cefTRIAXone) 1 grams Route: IVPB; Infused Over: 30 mins; Site: left ll1 antecubital; 14:06 Follow up: Response: No adverse reaction; RASS: Alert and Calm (0); IV Status: ll1 Completed infusion; IV Intake: 10ml 10:30 Drug: Tylenol 650 mg Route: PO; ll1 14:06 Follow up: Response: No adverse reaction; RASS: Alert and Calm (0) 1 13:07 Drug: Decadron - Dexamethasone 10 mg Route: IVP; Site: left antecubital; 1 14:06 Follow up: Response: No adverse reaction; RASS: Alert and Calm (0) 1 Disposition: 18:51 Co-signature as Attending Physician, Rene Billy MD I agree with the assessment and 4 plan of care. Disposition: 10/22/20 13:26 Discharged to Home. Impression: Coronavirus infection, unspecified. - Condition is Stable. - Discharge Instructions: COVID-19. - Prescriptions for ivermectin 3 mg Oral tablet - take 6 tablet by ORAL route as directed one dose on day one and a second dose on day three; 12 tablet. Prednisone 20 mg Oral Tablet - take 3 tablet by ORAL route once daily for 5 days; 15 tablet. Albuterol Sulfate 90 mcg/actuation - inhale 1-2 puff by INHALATION route every 4-6 hours; 1 Inhaler. - Medication Reconciliation Form, Thank You Letter, Antibiotic Education, Prescription Opioid Use form. - Follow up: Private Physician; When: 2 - 3 days; Reason: Recheck today's complaints, Continuance of care, Re-evaluation by your physician. - Notes: Please take -10,000 IU of vitmain D a day -1000 MG of NAC (N-Acetyl Cysteine) three times a day -50 mg of Zinc Return to the ED if you develop increased shortness of breath, vomiting, or any othe concerning symptoms. Signatures: Dispatcher [employer] EDMS Jose Dai PA PA jmm Calderon, Audri, RN RN aa5 Rene Billy MD MD tw4 Mittal, Apple eb Musa, Lynsay, RN RN ll1 Corrections: (The following items were deleted from the chart) 12:10 10:11 CORONAVIRUS+MR.LAB.BRZ ordered. EDMS EDMS 13:12 12:06 Labs - recollect needed ordered. eb ss 14:07 13:26 10/22/2020 13:26 Discharged to Home. Impression: Coronavirus infection, ll1 unspecified. Condition is Stable. Forms are Medication Reconciliation Form, Thank You Letter, Antibiotic Education, Prescription Opioid Use. Follow up: Private Physician; When: 2 - 3 days; Reason: Recheck today's complaints, Continuance of care, Re-evaluation by your physician. janice
[2020-10-22 14:19] VITALS: O2SAT 95
[2020-10-22 14:21] VITALS: TEMP 99.1
[2020-10-22 14:22] VITALS: BP 119/66
--- NOTE | 2020-10-23 08:31 | EKG ---
Test Date: 2020-10-22 Test Time: 10:44:45 Personal Support Worker: LML MEASUREMENT RESULTS: Intervals: Rate: 96 [place]: 130 QRSD: 80 QT: 344 QTc: 434 [place]: P: 67 [place]: 130 QRS: 38 T: 57 INTERPRETIVE STATEMENTS: Normal sinus rhythm Normal ECG Compared to ECG 04/09/2019 13:12:36 No significant changes Electronically Signed On 10-23-20 08:29:14 AIR CARRIER INSPECTOR by Reinaldo Rabago
== END 2020-10-22 14:07 | disposition home or self-care (01) ==
LOC: ER 09:46
DX: U07.1 COVID-19 (principal); I10 Essential (primary) hypertension
CPT/HCPCS: 93005; 87040 ×2; 85025; 80048; 36415; 82150; 82550; 80076; 83605; 84484; 82553; 83690; 84145; 0240U; 71045; J1100; J0696; J7030; 96365; 96366; 96368; 96375; 99284

== ENCOUNTER → 2023-09-15 | Emergency (ER) | payer BC ==
[~2023-09-15] MED LIST: NA CHLORIDE 0.9% 1,000 ML ONE
[2023-09-15 01:41] LABS: Absolute Lymphocytes (CBC) 1.3 K/uL (0.7-4.9); Hematocrit 34.8 % (39.6-49.0); Lymphocytes % 18.2 % (15.3-44.8); MCV 87.7 fL (80-100); MPV 7.8 fL (7.6-11.3); Platelets 236 thou/uL (152-406); RBC Red Blood Cell Count 3.96 M/uL (4.33-5.43)
[2023-09-15 01:55] LABS: Potassium 3.7 mEq/L (3.5-5.1)
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
[2023-09-15 06:08] VITALS: BP 137/62; TEMP 98; O2SAT 98
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
--- NOTE | 2023-09-17 15:06 | EKG ---
Test Date: 2023-09-15 Test Time: 04:23:23 Tray Setter: YARITZA MEASUREMENT RESULTS: Intervals: Rate: 92 FL: 158 QRSD: 80 QT: 368 QTc: 455 [place]: P: 74 FL: 158 QRS: 65 T: 61 INTERPRETIVE STATEMENTS: Normal sinus rhythm Normal ECG Compared to ECG 10/22/2020 10:44:45 No significant changes Electronically Signed On 09-17-23 15:00:37 DATAPOWER DEVELOPER by James Marks
== END ==
LOC: ER 00:35
DX: R91.1 Solitary pulmonary nodule (principal); L04.9 Acute lymphadenitis, unspecified; K76.0 Fatty (change of) liver, not elsewhere classified; N43.3 Hydrocele, unspecified; N17.9 Acute kidney failure, unspecified; V49.40XA Driver injured in collision with unspecified motor vehicles in traffic accident, initial encounter; I10 Essential (primary) hypertension
CPT/HCPCS: 85025; 80048; 36415; 86900; 86850; 86901; 84484; 70450; 72125; 71260; 74177; 73090; Q9967; J7030; 93005

== ENCOUNTER 2024-02-13 12:50 | Inpatient (IN) | payer BC, OTHER ==
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
[2024-02-13] MEDS ORDERED: NA CHLORIDE 0.9% 2,000 ML ONE (13:12)
--- NOTE | 2024-02-13 13:54 | RAD REPORT ---
EXAM DESCRIPTION: RAD - Chest Single View - 02/13/2024 1:47 pm CLINICAL HISTORY: COUGH Chest pain. COMPARISON: <Comparisons> FINDINGS: Portable technique limits examination quality. The lungs are grossly clear. The heart is upper limit of normal in size. No displaced fractures. IMPRESSION: No acute intrathoracic process suspected.
[2024-02-13 13:56] LABS: Absolute Basophils 0.1 K/uL (0-0.5); Absolute Eosinophils 0.1 K/uL (0-0.5); Absolute Lymphocytes (CBC) 1.6 K/uL (0.7-4.9); Absolute Monocytes 0.8 K/uL (0.1-1.3); Absolute Neutrophil 9.2 K/uL (1.8-8.0); Basophils % 0.5 % (0-1.3); Hematocrit 38.6 % (39.6-49.0); Hemoglobin 12.9 g/dL (13.6-17.9); Lymphocytes % 13.8 % (15.3-44.8); MCH 29.2 pg (27.0-35.0); MCHC 33.4 g/dL (32.0-36.0); MCV 87.6 fL (80-100); MPV 7.8 fL (7.6-11.3); Monocytes % 6.9 % (3.3-12.3); Neutrophils % 77.8 % (41.7-73.7); Nucleated Red Blood Cells % 0.1 % (0-0); Platelets 327 thou/uL (152-406); RBC Red Blood Cell Count 4.41 M/uL (4.33-5.43); Red Cell Distribution Width 14.4 % (12.1-15.2)
[2024-02-13 14:09] LABS: ALT/SGPT 29 U/L (16-61); AST/SGOT 20 U/L (15-37); Albumin 3.7 g/dL (3.4-5.0); Albumin/Globulin Ratio 0.7 (1.1-1.8); Alkaline Phosphatase 93 U/L (45-117); Anion Gap 12.2 mEq/L (5.0-15.0); BUN Blood Urea Nitrogen 44 mg/dL (7-18); Bicarbonate 23 mEq/L (21-32); Bilirubin Direct < 0.2 mg/dL (0-0.2); Bilirubin Indirect, Calculated 0.4 mg/dL (0.2-0.8); Bilirubin Total 0.6 mg/dL (0.2-1.0); Creatine Phosphokinase 306 U/L (39-308); Globulin 5.5 g/dL (2.3-3.5); Glomerular Filtration Rate 18 ml/min (=/>90); Glucose Level 123 mg/dL (74-106); Magnesium 2.5 mg/dL (1.6-2.4); NT PRO-BNP 54 pg/mL (<125); Potassium 4.2 mEq/L (3.5-5.1); Protein, Total 9.2 g/dL (6.4-8.2); Sodium Level 132 mEq/L (136-145)
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
--- NOTE | 2024-02-13 15:32 | EDPHYS ---
Physician Documentation [facility] Name: Darrius Barnes Age: 63 yrs Sex: Male : 1960 Arrival Date: 02/13/2024 Time: 12:50 Bed 11 Private MD: ED Physician Pee Noe HPI: 02/12 15:19 This 63 yrs old Male presents to ER via EMS with complaints of OVER HEATED , jessica HEAT EXHAUSTION. 15:19 IN SUN X 4-5 . Onset: The symptoms/episode began/occurred just prior to arrival, today. jessica Severity of symptoms: At their worst the symptoms were moderate in the emergency department the symptoms have improved moderately. The patient has experienced similar episodes in the past, a few times. Historical: - Allergies: 13:05 No Known Allergies; ko1 - Home Meds: 13:05 unknown BP medication [Active]; ko1 - PMHx: 13:05 Hypertension; ko1 - PSHx: 13:05 None; ko1 - Immunization history:: Adult Immunizations up to date. - Infectious Disease History:: Denies. - Social history:: Smoking status: Patient denies any tobacco usage or history of. ROS: 15:23 Constitutional: Negative for fever, chills, and weight loss, Eyes: Negative for injury, jessica pain, redness, and discharge, ENT: Negative for injury, pain, and discharge, Neck: Negative for injury, pain, and swelling, Cardiovascular: Negative for chest pain, palpitations, and edema, Respiratory: Negative for shortness of breath, cough, wheezing, and pleuritic chest pain, Abdomen/GI: Negative for abdominal pain, nausea, vomiting, diarrhea, and constipation, Back: Negative for injury and pain, : Negative for injury, bleeding, discharge, and swelling, MS/Extremity: Negative for injury and deformity, Skin: Negative for injury, rash, and discoloration, Psych: Negative for depression, anxiety, suicide ideation, homicidal ideation, and hallucinations, Allergy/Immunology: Negative for hives, rash, and allergies, Endocrine: Negative for neck swelling, polydipsia, polyuria, polyphagia, and marked weight changes, Hematologic/Lymphatic: Negative for swollen nodes, abnormal bleeding, and unusual bruising, 15:23 Neuro: Positive for dizziness, near syncope, weakness, Exam: 15:23 Constitutional: This is a well developed, well nourished patient who is awake, alert, jessica and in no acute distress. Head/Face: Normocephalic, atraumatic. Eyes: Pupils equal round and reactive to light, extra-ocular motions intact. Lids and lashes normal. Conjunctiva and sclera are non-icteric and not injected. Cornea within normal limits. Periorbital areas with no swelling, redness, or edema. ENT: Nares patent. No nasal discharge, no septal abnormalities noted. Tympanic membranes are normal and external auditory canals are clear. Oropharynx with no redness, swelling, or masses, exudates, or evidence of obstruction, uvula midline. Mucous membranes moist. Neck: Trachea midline, no thyromegaly or masses palpated, and no cervical lymphadenopathy. Supple, full range of motion without nuchal rigidity, or vertebral point tenderness. No Meningismus. Chest/axilla: Normal chest wall appearance and motion. Nontender with no deformity. No lesions are appreciated. Respiratory: Lungs have equal breath sounds bilaterally, clear to auscultation and percussion. No rales, rhonchi or wheezes noted. No increased work of breathing, no retractions or nasal flaring. Abdomen/GI: Soft, non-tender, with normal bowel sounds. No distension or tympany. No guarding or rebound. No evidence of tenderness throughout. Back: No spinal tenderness. No costovertebral tenderness. Full range of motion. Male : Normal genitalia with no discharge or lesions. Skin: Warm, dry with normal turgor. Normal color with no rashes, no lesions, and no evidence of cellulitis. MS/ Extremity: Pulses equal, no cyanosis. Neurovascular intact. Full, normal range of motion. Neuro: Awake and alert, GCS 15, oriented to person, place, time, and situation. Cranial nerves II-XII grossly intact. Motor strength 5/5 in all extremities. Sensory grossly intact. Cerebellar exam normal. Normal gait. Psych: Awake, alert, with orientation to person, place and time. Behavior, mood, and affect are within normal limits. 15:23 Cardiovascular: Rate: normal, Rhythm: regular, Pulses: Pulses are 4+ in bilateral radial, brachial, femoral, popliteal, posterior tibial and and dorsalis pedis arteries.. Heart sounds: normal, normal S1and S2, no S3 or S4, no murmur, no rub, no gallop, JVD: is not appreciated, 15:23 ECG was reviewed by the Attending Physician. Vital Signs: 12:52 BP 138 / 84; Pulse 82; Resp 18; Temp 97.2; Pulse Ox 99% on R/A; ko1 14:25 BP 132 / 80; Pulse 78; Resp 16; Pulse Ox 98% ; ko1 15:23 BP 134 / 82; Pulse 84; Resp 16; Pulse Ox 99% ; ko1 NIH Stroke Scale Scores: 15:23 NIHSS Score: 0 jessica [place] Coma Score: 15:23 Eye Response: spontaneous(4). Motor Response: obeys commands(6). Verbal Response: jessica oriented(5). Total: 15. MDM: 13:09 Patient medically screened. jessica 15:25 Differential Diagnosis altered mental status, sepsis, flu. Differential Diagnosis: jessica cardiac arrhythmia, cerebrovascular accident, GI bleed, idiopathic syncope, seizure, vasovagal episode, cardiac arrhythmia, generalized weakness, GI bleed, hyperventilation, hypovolemia, idiopathic dizziness. Data reviewed: vital signs, nurses notes, EMS record, lab test result(s), EKG, radiologic studies, CT scan, plain films. Consideration of Admission/Observation Patient was admitted/placed on observation. Escalation of care including admission/observation considered. I considered the following discharge prescriptions or medication management in the emergency department Medications were administered in the Emergency Department. See MAR. Independent interpretation of the following test(s) in the Emergency Department EKG: See my EKG interpretation above. Test considered but Not performed: Ultrasound RENAL USG NOT DONE. Care significantly affected by the following chronic conditions: Hypertension, Obesity, Chronic Kidney Disease. 02/12 13:05 Order name: Glucose, Ancillary Testing; Complete Time: 14:12 EDMS 02/12 13:09 Order name: Basic Metabolic Panel; Complete Time: 14:12 [facility] 02/12 13:09 Order name: CBC with Diff; Complete Time: 14:12 jessica 02/12 13:09 Order name: LFT's; Complete Time: 14:12 jessica 02/12 13:09 Order name: Magnesium; Complete Time: 14:12 jessica 02/12 13:09 Order name: NT PRO-BNP; Complete Time: 14:12 jessica 02/12 13:09 Order name: Troponin HS; Complete Time: 14:12 [facility] 02/12 13:09 Order name: CPK; Complete Time: 14:12 [facility] 02/12 13:09 Order name: Urinalysis w/ reflexes jessica 02/12 16:58 Order name: Basic Metabolic Panel EDMS / 16:58 Order name: Basic Metabolic Panel EDMS 02/12 16:58 Order name: Basic Metabolic Panel EDMS 02/12 16:58 Order name: Basic Metabolic Panel EDMS 02/12 16:58 Order name: CBC with Automated Diff EDMS 02/12 16:58 Order name: CBC with Automated Diff EDMS 02/12 16:58 Order name: CBC with Automated Diff EDMS 02/12 16:58 Order name: CBC with Automated Diff EDMS / 16:58 Order name: Creatine Phosphokinase EDMS / 16:58 Order name: Creatine Phosphokinase EDMS 02/12 16:58 Order name: Creatine Phosphokinase EDMS 02/12 16:58 Order name: Creatine Phosphokinase EDMS 02/12 16:58 Order name: Lipid Profile EDMS 02/12 16:58 Order name: Lipid Profile EDMS / 16:58 Order name: Magnesium EDMS / 16:58 Order name: Magnesium EDMS 02/12 16:58 Order name: Magnesium EDMS / 16:58 Order name: Magnesium EDMS / 16:58 Order name: Phosphorus EDMS / 16:58 Order name: Phosphorus EDMS 02/12 16:58 Order name: Phosphorus EDMS / 16:58 Order name: Phosphorus EDMS / 13:09 Order name: XRAY Chest (1 view); Complete Time: 14:12 [facility] 02/12 14:12 Order name: CT Stone Protocol; Complete Time: 15:16 [facility] 02/12 13:09 Order name: EKG; Complete Time: 13:10 [facility] 02/12 16:58 Order name: CONS Physician Consult EDOK 02/12 13:09 Order name: Cardiac monitoring; Complete Time: 13:10 [facility] 02/12 13:09 Order name: EKG - Nurse/Tech; Complete Time: 13:41 [facility] 02/12 13:09 Order name: IV Saline Lock; Complete Time: 13:10 [facility] 02/12 13:09 Order name: Labs collected and sent; Complete Time: 13:41 [facility] 02/12 13:09 Order name: O2 Per Protocol; Complete Time: 13:10 jessica 02/12 13:09 Order name: O2 Sat Monitoring; Complete Time: 13:10 jessica EC:23 Rate is 99 beats/min. Rhythm is regular. QRS Brilliant is Normal. MA interval is normal. QRS jessica interval is normal. QT interval is normal. No Q waves. T waves are Normal. No ST changes noted. Clinical impression: NSR w/ Non-specific ST/T Changes and No evidence of ischemia. Interpreted by me. Reviewed by me. Administered Medications: 13:11 Drug: NS 0.9% IV 1000 ml IV at 1 bolus Per protocol; 1000 mL bolus Route: IV; Rate: 1 ko1 bolus; Site: left hand; 14:24 Follow up: Response: No adverse reaction; IV Status: Completed infusion; IV Intake: ko1 1000ml 13:59 Drug: NS 0.9% IV 1000 ml IV at 1 bolus Per protocol; 1000 mL bolus Route: IV; Rate: 1 ko1 bolus; Site: right antecubital; 14:30 Follow up: Response: No adverse reaction; IV Status: Completed infusion; IV Intake: ko1 1000ml 14:21 Drug: NS 0.9% IV 1000 ml IV at 125 ml/hr continuous Route: IV; Rate: 125 ml/hr; Site: ko1 right antecubital; Disposition Summary: 02/13/24 15:32 Hospitalization Ordered Notes: Hospitalization Status: Observation jessica Provider: Philip Hernandez cha Location: Telemetry/MedSurg (observation) jessica Condition: Fair jessica Problem: new jessica Symptoms: have improved jessica Bed/Room Type: Standard [facility] Room Assignment: 418(02/13/24 17:27) bc6 Diagnosis - Heat exhaustion, unspecified jessica - Acute kidney failure, unspecified - ON CHRONIC jessica - Weakness jessica - Dehydration jessica Forms: - Medication Reconciliation Form jessica - SBAR form jessica - Leadership Thank You Letter [facility] NIH Stroke Scale - NIH Stroke Score Date: 02/13/2024 Time: 15:23 Total Score = 0 10. Dysarthria (speech clarity - read or repeat words) - 0(Normal) 11. Extinction and Inattention (visual/tactile/auditory/spatial/personal) - 0(No abnormality) 1a. Level of Consciousness (LOC) - 0(Alert) 1b. Level of Consciousness (LOC) (Month \\T\\ Age) - 0(Both) 1c. LOC Commands (Open \\T\\ Closes Eyes/Air And Water Filler) - 0(Both) 2. Best Gaze (Lateral Gaze Paresis) - 0(Normal) 3. Visual Field Loss - 0(No visual loss) 4. Facial Palsy - 0(Normal) 5a. Left Arm: Motor (10-second hold) - 0(No drift) 5b. Right Arm: Motor (10-second hold) - 0(No drift) 6a. Left Leg: Motor (5-second hold - always test supine) - 0(No drift) 6b. Right Leg: Motor (5-second hold - always test supine) - 0(No drift) 7. Limb Ataxia (finger/nose \\T\\ heel/sutton - test with eyes open) - 0(Absent) 8. Sensory Loss (pinprick arms/legs/face) - 0(Normal) 9. Best Language: Aphasia (description/naming/reading) - 0(No aphasia) Initials: [facility] Signatures: Dispatcher [employer] EDPee Jacobsen MD MD cha Oliver, Kathy, RN RN ko1 Tatiana Youngblood 6 Corrections: (The following items were deleted from the chart) 13:06 13:05 PMHx: "Kidney problems"; ko1 ko1 17:27 15:32 [place] [id number]
--- NOTE | 2024-02-13 15:32 | ER ---
Nurse's Notes [facility] Name: Darrius Barnes Age: 63 yrs Sex: Male : 1960 Arrival Date: 02/13/2024 Time: 12:50 Bed 11 Private MD: Diagnosis: Heat exhaustion, unspecified;Acute kidney failure, unspecified-ON CHRONIC;Weakness;Dehydration Presentation: 02/12 12:52 Chief complaint: EMS states: patient was at work outside and became dizzy, complains of ko1 muscle cramps. Coronavirus screen: At this time, the client does not indicate any symptoms associated with coronavirus-19. Ebola Screen: No symptoms or risks identified at this time. Initial Sepsis Screen: Does the patient meet any 2 criteria? No. Patient's initial sepsis screen is negative. Does the patient have a suspected source of infection? No. Patient's initial sepsis screen is negative. Risk Assessment: Do you want to hurt yourself or someone else?. Onset of symptoms was February 13, 2024. Care prior to arrival: Medication(s) given: Normal saline infusion, 500 mL, IV initiated. 20 GA, in the left hand. 12:52 Method Of Arrival: EMS: [facility] ko1 12:52 Acuity: GARY 3 ko1 Triage Assessment: 13:05 General: Appears in no apparent distress. Behavior is calm, cooperative, appropriate ko1 for age. Pain: Denies pain. Historical: - Allergies: 13:05 No Known Allergies; ko1 - Home Meds: 13:05 unknown BP medication [Active]; ko1 - PMHx: 13:05 Hypertension; ko1 - PSHx: 13:05 None; ko1 - Immunization history:: Adult Immunizations up to date. - Infectious Disease History:: Denies. - Social history:: Smoking status: Patient denies any tobacco usage or history of. Screenin:46 [facility] ED Fall Risk Assessment (Adult) History of falling in the last 3 months, ko1 including since admission No falls in past 3 months (0 pts) Confusion or Disorientation No (0 pts) Intoxicated or Sedated No (0 pts) Impaired Gait No (0 pts) Mobility Assist Device Used No (0 pt) Altered Elimination No (0 pt) Score/Fall Risk Level 0 - 2 = Low Risk Oriented to surroundings, Maintained a safe environment, Educated pt \\T\\ family on fall prevention, incl call for assistance when getting out of bed, Assessed \\T\\ reinforced patient's understanding of fall precautions, Provided non-skid footwear, Hourly rounding (assess needs \\T\\ fall precautionary measures) done. Abuse screen: Denies threats or abuse. Denies injuries from another. Nutritional screening: No deficits noted. Tuberculosis screening: No symptoms or risk factors identified. Assessment: 13:46 Neuro: Reports dizziness, weakness in generalized. Cardiovascular: No deficits noted. ko1 Respiratory: No deficits noted. GI: No deficits noted. : No deficits noted. EENT: No deficits noted. Derm: No deficits noted. Musculoskeletal: Reports pain in generalized muscle cramps. Vital Signs: 12:52 BP 138 / 84; Pulse 82; Resp 18; Temp 97.2; Pulse Ox 99% on R/A; ko1 14:25 BP 132 / 80; Pulse 78; Resp 16; Pulse Ox 98% ; ko1 15:23 BP 134 / 82; Pulse 84; Resp 16; Pulse Ox 99% ; ko1 [place] Coma Score: 15:23 Eye Response: spontaneous(4). Motor Response: obeys commands(6). Verbal Response: jessica oriented(5). Total: 15. NIH Stroke Scale Scores: 15:23 NIHSS Score: 0 jessica ED Course: 12:52 Patient arrived in ED. ko1 13:01 Pat De Leon, RN is Primary Nurse. ko1 13:05 Triage completed. ko1 13:05 Arm band placed on right wrist. Patient placed in an exam room, on a stretcher, on ko1 registered nurse cardiac telemetry, on pulse oximetry, Patient notified of wait time. 13:09 Pee Noe MD is Attending Physician. [facility] 13:41 Basic Metabolic Panel Sent. ko1 13:41 CBC with Diff Sent. ko1 13:41 LFT's Sent. ko1 13:41 Magnesium Sent. ko1 13:41 NT PRO-BNP Sent. ko1 13:41 CPK Sent. ko1 13:46 Patient has correct armband on for positive identification. Bed in low position. Call ko1 light in reach. Side rails up X2. Provided Education on: call light, meds, labs. Client placed on continuous cardiac and pulse oximetry monitoring. NIBP monitoring applied. insurance follow up specialist on. Door closed. Noise minimized. Lights dimmed. Warm blanket given. Pillow given. 13:46 No provider procedures requiring assistance completed. Initial lab(s) drawn, by ED ko1 staff, sent to lab. EKG done, by ED staff, reviewed by Pee Noe MD. Maintain EMS IV. Dressing intact. Site clean \\T\\ dry. Gauge \\T\\ site: 20g left hand. 13:48 XRAY Chest (1 view) In Process Unspecified. EDMS 13:56 Inserted saline lock: 20 gauge in right antecubital area, using aseptic technique. ko1 Blood collected. 14:39 Linen changed. ko1 14:41 CT Stone Protocol In Process Unspecified. EDMS 15:31 Philip Hernandez MD is Hospitalizing Provider. jessica 17:38 Patient admitted, IV remains in place. ko1 Administered Medications: 13:11 Drug: NS 0.9% IV 1000 ml IV at 1 bolus Per protocol; 1000 mL bolus Route: IV; Rate: 1 ko1 bolus; Site: left hand; 14:24 Follow up: Response: No adverse reaction; IV Status: Completed infusion; IV Intake: ko1 1000ml 13:59 Drug: NS 0.9% IV 1000 ml IV at 1 bolus Per protocol; 1000 mL bolus Route: IV; Rate: 1 ko1 bolus; Site: right antecubital; 14:30 Follow up: Response: No adverse reaction; IV Status: Completed infusion; IV Intake: ko1 1000ml 14:21 Drug: NS 0.9% IV 1000 ml IV at 125 ml/hr continuous Route: IV; Rate: 125 ml/hr; Site: ko right antecubital; Medication: 13:46 VIS not applicable for this client. ko1 Intake: 14:24 IV: 1000ml; Total: 1000ml. ko1 14:30 IV: 1000ml; Total: 2000ml. ko1 Outcome: 15:32 Decision to Hospitalize by Provider. jessica 17:38 Admitted to Med/surg accompanied by tech, via wheelchair, room 418, with chart, ko1 17:38 Condition: stable 17:38 Instructed on the need for admit, 18:29 Patient left the ED. ko1 NIH Stroke Scale - NIH Stroke Score Date: 02/13/2024 Time: 15:23 Total Score = 0 10. Dysarthria (speech clarity - read or repeat words) - 0(Normal) 11. Extinction and Inattention (visual/tactile/auditory/spatial/personal) - 0(No abnormality) 1a. Level of Consciousness (LOC) - 0(Alert) 1b. Level of Consciousness (LOC) (Month \\T\\ Age) - 0(Both) 1c. LOC Commands (Open \\T\\ Closes Eyes/Charter Representative) - 0(Both) 2. Best Gaze (Lateral Gaze Paresis) - 0(Normal) 3. Visual Field Loss - 0(No visual loss) 4. Facial Palsy - 0(Normal) 5a. Left Arm: Motor (10-second hold) - 0(No drift) 5b. Right Arm: Motor (10-second hold) - 0(No drift) 6a. Left Leg: Motor (5-second hold - always test supine) - 0(No drift) 6b. Right Leg: Motor (5-second hold - always test supine) - 0(No drift) 7. Limb Ataxia (finger/nose \\T\\ heel/sutton - test with eyes open) - 0(Absent) 8. Sensory Loss (pinprick arms/legs/face) - 0(Normal) 9. Best Language: Aphasia (description/naming/reading) - 0(No aphasia) Initials: jessica Signatures: Dispatcher [employer] EDPee Jacobsen MD MD cha Oliver, Kathy, RN RN ko1 Corrections: (The following items were deleted from the chart) 13:06 13:05 PMHx: "Kidney problems"; ko1 ko1
--- NOTE | 2024-02-13 16:17 | P.HP ---
Certification for Inpatient Patient admitted to: Observation With expected LOS: <2 Midnights Patient will require the following post-hospital care: None Practitioner: I am a practitioner with admitting privileges, knowledge of patient current condition, hospital course, and medical plan of care. Services: Services provided to patient in accordance with Admission requirements found in Title 42 Section 412.3 of the Code of Federal Regulations Patient History Date of Service: 02/13/24 Reason for admission: Heat exhaustion History of Present Illness: Darrius Barnes is a 63-year-old male with past medical history of hypertension who presented to the ED with chief complaint of being in the sun for too long today and experiencing heat exhaustion. 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 Laboratory evaluation showing BUN/creatinine 44/3.56, GFR 18, sodium 132, WBC 11.8, UA pending. Initial vitals BP 138 / 84; Pulse 82; Resp 18; Temp 97.2; Pulse Ox 99% CT stone protocol reports "No urinary tract stones or obstructive uropathy. Mildly prominent lymphadenopathy is identified in the abdomen and pelvis as detailed. Mesenteric and para-aortic fat appears mildly edematous. The findings are nonspecific but could not rule out underlying lymphoproliferative process." Chest x-ray reports "No acute intrathoracic process suspected." Darrius will be admitted to hospitalist service for further evaluation and treatment. Allergies No Known Allergies Allergy (Verified 04/09/19 17:17) - Past Medical/Surgical History Diabetic: No -: hypertension -: kidney disease -: anemia -: appendectomy -: umbilical hernnia repair - Family History Mother -: Diabetes, Cancer Notes: breast cancer Father -: Heart disease, Hypertension Notes: emphysema, Ghislaine Gehrig's disease, shingles - Social History Alcohol use: Yes CD- Drugs: No Caffeine use: Yes Physical Examination - Studies Laboratory Data (last 24 hrs) 02/13/24 02/13/24 13:40 13:40 WBC 11.80 H Hgb 12.9 L Hct 38.6 L Plt Count 327 Sodium 132 L Potassium 4.2 BUN 44 H Creatinine 3.56 H Glucose 123 H Magnesium 2.5 H Total Bilirubin 0.6 AST 20 ALT 29 Alkaline Phosphatase 93 Assessment and Plan - Plan Assessment and plan Acute heat exhaustion Acute on Chronic kidney disease -2 L normal saline given in the ED -Gentle IV fluids continue on the floor -BUN/creatinine 44/3.56, GFR 18 -Dr. Chao consulted -Continuous telemetry Hx HTN -Continue home medication when available and if appropriate DVT PPx SCDs Full code LOS 2 to 3 days Discharge Plan: Home Plan to discharge in: 24 Hours - Advance Directives Does patient have a Living Will: No Does patient have a Durable POA for Healthcare: No
[2024-02-13] MEDS ORDERED: ACETAMINOPHEN 500 MG TAB PO PRN (16:50)
[2024-02-13] MEDS: NA CHLORIDE 0.9% 1,000 ML IV SCH (21:00)
[2024-02-13 21:12] VITALS: BMI 38.9
[2024-02-13 23:57] LABS: Specific Gravity 1.019 (1.005-1.030); Sqamous Epithelial <5 /HPF (None Seen); Urine Bacteria None Seen /HPF (<20); Urine Bilirubin NEGATIVE (Negative); Urine Blood Trace (Negative); Urine Clarity Turbid (Clear); Urine Color Light-Yellow (Yellow); Urine Culture Reflex Order NOT NEEDED; Urine Glucose NEGATIVE (Negative); Urine Ketones NEGATIVE (Negative); Urine Microscopic Reflex YN ORDER UMIC; Urine Mucus Slight /HPF (None Seen); Urine Nitrite NEGATIVE (Negative); Urine Protein TRACE (Negative); Urine RBC <5 /HPF (None Seen); Urine Urobilinogen Normal (Normal); Urine WBC <5 /HPF (<5)
[2024-02-14 07:22] LABS: Absolute Eosinophils 0.4 K/uL (0-0.5); Absolute Lymphocytes (CBC) 1.8 K/uL (0.7-4.9); Absolute Monocytes 0.6 K/uL (0.1-1.3); Absolute Neutrophil 5.5 K/uL (1.8-8.0); Basophils % 0.6 % (0-1.3); Eosinophils % 5.3 % (0-4.4); Hematocrit 34.5 % (39.6-49.0); Hemoglobin 11.6 g/dL (13.6-17.9); Lymphocytes % 21.4 % (15.3-44.8); MCH 29.3 pg (27.0-35.0); MCHC 33.5 g/dL (32.0-36.0); MCV 87.4 fL (80-100); MPV 8.1 fL (7.6-11.3); Monocytes % 6.9 % (3.3-12.3); Neutrophils % 65.8 % (41.7-73.7); Nucleated Red Blood Cells % 0.1 % (0-0); Platelets 268 thou/uL (152-406); RBC Red Blood Cell Count 3.95 M/uL (4.33-5.43); Red Cell Distribution Width 14.2 % (12.1-15.2)
[2024-02-14 08:13] LABS: Anion Gap 9.2 mEq/L (5.0-15.0); Magnesium 2.3 mg/dL (1.6-2.4); Phosphorus 3.9 mg/dL (2.5-4.9); Potassium 4.2 mEq/L (3.5-5.1)
[2024-02-14] MEDS: NA CHLORIDE 0.9% 1,000 ML IV SCH ×2 (09:14→14:00)
[2024-02-14 13:31] LABS: Anion Gap 7.5 mEq/L (5.0-15.0); Magnesium 2.1 mg/dL (1.6-2.4); Phosphorus 2.5 mg/dL (2.5-4.9); Potassium 4.5 mEq/L (3.5-5.1)
--- NOTE | 2024-02-14 13:33 | CON ---
Date of Consultation: 02/14/2024 Reason For Consultation: Elevated BUN and creatinine. History Of Present Illness: This is a 63-year-old gentleman, well known to me from the office, lost follow up, with significant past medical history of chronic kidney disease, normal size kidney 07/23, proteinuric, nonnephrotic. Workup including serum protein electrophoresis within normal limits, bas jay creatinine 1 and GFR around 70 as of December 2020. The patient apparently was working outside and started feeling weak with a cramp and sweating with nausea without any vomiting. For that reason, re ported to the emergency room. In the emergency room, found to have creatinine 3.5, GFR of 18, and hy ponatremia. For that reason, we have been consulted. Over the night, the patient was started on agg ressive hydration, kidney function has been improved, creatinine down to 2, GFR of 37. The patient i s feeling better. No nausea. No vomiting. CK was 1500. Past Medical History: Includes; 1.Hypertension. 2.Proteinuria. Allergies: NO KNOWN DRUGS ALLERGY. Past Surgical History: Includes appendectomy, umbilical hernia. Family History: Positive for cancer, diabetes, and hypertension, CAD. Social History: Active alcohol. Occasional smoking. Denied drugs abuse. Review of Systems: Head and Neck: No red eye. No ear pain. GI: Has nausea. No vomiting. : No polyuria. No dysuria. No hematuria. OIL DIPPER: Not applicable. Respiratory: No shortness of breath. Cardiovascular: No chest pain. Endocrine: No polydipsia. Skin: No rash. Neuro: Has muscle cramps. Musculoskeletal: Generalized weakness. Physical Examination: Vital Signs: When I saw the patient; blood pressure 114/59, pulse of 77, afebrile. Chest: Clear to auscultation. Heart: S1, S2. Regular. Abdomen: Soft, nontender. Extremities: No edema. Neuro: Alert. No focality. Laboratory Data: Sodium 132, potassium 4.2, bicarb 23, creatinine 3.5, GFR of 18. Today's lab data; sodium 135, potassium 4.2, bicarb 21, BUN 42, creatinine 2, calcium 8.4, phosphorus 3.9, magnesium 2 .3. CK 1500. Urinalysis; specific gravity 1.019, negative for infection. Current Medications: The patient on include Tylenol, IV fluid. Assessment And Plan: 1.Acute kidney injury, multifactorial, secondary to prerenal, superimposed with DAVID inhibitor and hy drochlorothiazide, superimposed with rhabdomyolysis, on the recovery phase. The patient looked to me still on the dry side. I am going to go ahead and bolus the patient with 1 L of normal saline. I a m going to increase IV fluid to 100 per hour and we will continue to monitor. I agree with holding l isinopril and hydrochlorothiazide and we will follow up. 2.Rhabdomyolysis with acute kidney injury. Continue aggressive hydration. Follow up CK. 3.Hypertension, currently with current blood pressure and acute kidney injury. Hold blood pressure medications, especially DAVID inhibitor and hydrochlorothiazide. 4.Rhabdomyolysis. We will continue hydration. 5.Heat exhaustion. Continue hydration as above. 6.Hyponatremia, depletional. Will be corrected with IV fluid. Thank you, Dr. Hart for allowing us to participate in the care of your patient. LESVIA Voice ID: [id number] Report ID: [id number]
[2024-02-14] MEDS: NA CHLORIDE 0.9% 1,000 ML IV ONE (13:46)
[2024-02-14 16:38] VITALS: O2SAT 98
[2024-02-14 16:42] LABS: UR PROTEIN 14.1 mg/dL (<11.9); Urine Protein/Creatinine Ratio 0.18 ratio (<0.15)
--- NOTE | 2024-02-14 18:55 | P.PN ---
Date of Service: 02/14/24 Subjective Awake with no complaints tolerating PO diet ambulating independently ROS 10 point ROS as noted above, otherwise negative General: AAOx3, NAD, comfortable HEENT: mucus membranes moist, nare normal Head/Neck: Normocephalic, atraumatic, neck supple Respiratory: symmetrical chest expansion, no accessory muscles used, lungs clear on ausultation Cardiac: Regular rate and rhythm, S1-S2 present, no murmurs or gallops noted Extremities: No edema present, peripheral pulses 2+ Abdominal: soft and benign on palpation, NT/ND Skin: warm pink and dry Neurological: clear speech, appropriate Psych: normal mood and affect, Judgement appropriate Vitals Reviewed Problem list Acute heat exhaustion Acute on Chronic kidney disease Rhabdomyolysis Hx HTN Assessment and Plan Acute heat exhaustion Acute on Chronic kidney disease Rhabdomyolysis -2 L normal saline given in the ED -Continue gentle IV fluids -BUN/creatinine 42/2.00, GFR 37 -CK 306/1514/1323 -Dr. Chao consulted -Continuous telemetry Hx HTN -Continue home medication when available and if appropriate DVT PPx SCDs Full code LOS 2 to 3 days Discharge Plan: Home Plan to discharge in: 24 Hours
[2024-02-15 06:06] LABS: Absolute Basophils 0.1 K/uL (0-0.5); Absolute Eosinophils 0.4 K/uL (0-0.5); Absolute Lymphocytes (CBC) 1.9 K/uL (0.7-4.9); Absolute Monocytes 0.5 K/uL (0.1-1.3); Absolute Neutrophil 4.1 K/uL (1.8-8.0); Basophils % 0.8 % (0-1.3); Eosinophils % 5.5 % (0-4.4); Hematocrit 35.5 % (39.6-49.0); Hemoglobin 11.3 g/dL (13.6-17.9); Lymphocytes % 27.3 % (15.3-44.8); MCH 28.5 pg (27.0-35.0); MCV 89.1 fL (80-100); MPV 8.1 fL (7.6-11.3); Monocytes % 7.6 % (3.3-12.3); Neutrophils % 58.8 % (41.7-73.7); Platelets 231 thou/uL (152-406); RBC Red Blood Cell Count 3.98 M/uL (4.33-5.43); Red Cell Distribution Width 14.6 % (12.1-15.2)
[2024-02-15 06:34] LABS: Anion Gap 8.4 mEq/L (5.0-15.0); Phosphorus 2.6 mg/dL (2.5-4.9); Potassium 4.4 mEq/L (3.5-5.1); Uric Acid 5.8 mg/dL (3.5-7.2)
--- NOTE | 2024-02-15 08:45 | P.DS ---
Admission Date: 02/15/24 Discharge Date: 02/18/24 Disposition: ROUTINE DISCHARGE Discharge Condition: GOOD Reason for Admission: Heat exhaustion Brief History of Present Illness: Diagnosis Acute heat exhaustion Acute on Chronic kidney disease Rhabdomyolysis Hx HTN HPI 02/13/24 Darrius Barnes is a 63-year-old male with past medical history of hypertension who presented to the ED with chief complaint of being in the sun for too long today and experiencing heat exhaustion. 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 Laboratory evaluation showing BUN/creatinine 44/3.56, GFR 18, sodium 132, WBC 11.8, UA pending. Initial vitals BP 138 / 84; Pulse 82; Resp 18; Temp 97.2; Pulse Ox 99% CT stone protocol reports "No urinary tract stones or obstructive uropathy. Mildly prominent lymphadenopathy is identified in the abdomen and pelvis as detailed. Mesenteric and para-aortic fat appears mildly edematous. The findings are nonspecific but could not rule out underlying lymphoproliferative process." Chest x-ray reports "No acute intrathoracic process suspected." Darrius will be admitted to hospitalist service for further evaluation and treatment. Hospital Course: Darrius Barnes is a 63 year old male with Pmhx of HTN who presented to the ED with abdominal cramping and general malaise. 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 He has had heat exhaustion in the past. He states, he went to lunch but before he ate he felt the abdominal cramping which extended down his legs associated with general malaise. Laboratory evaluation showing BUN/creatinine 44/3.56, GFR 18, sodium 132, WBC 11.8, Dr. Chao was consulted for Kidney disease and Rhabdomyolysis. He has tolerated IV fluids, holding lisinopril and NSAIDs. He remained hemodynamically stable and is ambulating independently. He is on room air, tolerating PO diet, and is ready for discharge. At discharge, instructions given to remain out of the heat for two days, limit extended time in the sun at work, stay hydrated with water and body armor. Follow up appointments needed with his PCP for a change in his blood pressure mediation and monitor his hydration status. General: Alert and orientedx3, NAD, comfortable HEENT: mucus membranes moist, nare normal Head/Neck: Normocephalic, atraumatic, neck supple Respiratory: symmetrical chest expansion, no accessory muscles used, lungs clear on ausultation Cardiac: RRR, S1-S2 present, no murmurs or gallops noted Extremities: No edema present, peripheral pulses 2+ Abdominal: soft and benign on palpation, NT/ND, normal active bowel sounds Skin: warm pink and dry Neurological: clear speech, appropriate Psych: normal mood and affect, Judgement appropriate Vital Signs/Physical Exam: Temp Pulse Resp BP Pulse Ox 97 F 80 19 117/57 L 97 02/15/24 04:00 02/15/24 04:00 02/15/24 04:00 02/15/24 04:00 02/15/24 04:00 Laboratory Data at Discharge: WBC 6.90 thou/uL (4.3-10.9) 02/15/24 05:57 Hgb 11.3 g/dL (13.6-17.9) L 02/15/24 05:57 Hct 35.5 % (39.6-49.0) L 02/15/24 05:57 Plt Count 231 thou/uL (152-406) 02/15/24 05:57 Sodium 137 mEq/L (136-145) 02/15/24 05:57 Potassium 4.4 mEq/L (3.5-5.1) 02/15/24 05:57 BUN 25 mg/dL (7-18) H 02/15/24 05:57 Creatinine 1.34 mg/dL (0.70-1.30) H 02/15/24 05:57 Glucose 105 mg/dL (74-106) 02/15/24 05:57 Uric Acid 5.8 mg/dL (3.5-7.2) 02/15/24 05:57 Phosphorus 2.6 mg/dL (2.5-4.9) 02/15/24 05:57 Magnesium 2.0 mg/dL (1.6-2.4) 02/15/24 05:57 Total Bilirubin 0.6 mg/dL (0.2-1.0) 02/13/24 13:40 AST 20 U/L (15-37) 02/13/24 13:40 ALT 29 U/L (16-61) 02/13/24 13:40 Alkaline Phosphatase 93 U/L (45-117) 02/13/24 13:40 Triglycerides 265 mg/dL (<150) H 02/14/24 06:50 Cholesterol 178 mg/dL (<200) 02/14/24 06:50 HDL Cholesterol 29 mg/dL (40-60) L 02/14/24 06:50 Cholesterol/HDL Ratio 6.14 02/14/24 06:50 Physician Discharge Instructions: Darrius Barnes has been treated for severe dehydration causing Rhabdomyolysis which affects the kidneys. You have tolerated IV hydration and your kidneys have recovered extensively. Please stay hydrated and avoid being outside til Sunday. When you return to work, limit your time in the heat. Please hydrate with water and body armor which will help maintain your electrolytes. 1. Please call and schedule a follow-up appointment with your PCP in 3-5 days - Please follow-up with your PCP for medication refills/adjustments -Stop taking lisinopril until further discussions with your PCP 2. Please call and schedule a follow-up appointment with Dr. Chao in 2 weeks 3. Continue regular diet, body armor and water, Drink water at night to help hydrate for the next morning 4. No activity restrictions 5. Return to the ED if symptoms worsen Stop taking lisinopril until further discussions with your PCP Diet: Regular Activity: Ad valentino Followup: Norris Chao MD [ACTIVE - CAN ADMIT] - 1-2 Weeks (call to schedule an appointment) NONE,NONE [Primary Care Provider] - (follow up in 3-5 days, call to schedule an appointment)
[2024-02-15 09:01] VITALS: BP 111/56; TEMP 97.3
--- NOTE | 2024-02-15 23:12 | PN ---
Date of Progress Note: 02/15/2024 Chief Complaint: Elevated BUN and creatinine, acute kidney injury. History Of Present Illness: The patient is a 63-year-old man with past medical history significant f or chronic kidney disease, previous ultrasound showed normal size kidney and he has nonnephrotic rang e proteinuria. Workup included serum protein electrophoresis, which was within normal limits and [facility] creatinine level was 1, GFR 70. The patient currently was working outside and was feeling weak , had generalized body cramp, nausea, vomiting. Denies hematemesis, melena. Workup in the emergency room showed creatinine level of 3.5, hyponatremia. Nephrology was consulted. CK level was 1500. S gil creatinine level was 3.5, GFR was 18. The patient received IV fluids and renal function improve d somewhat showing creatinine of 2 and GFR of 37. Past Medical History: Hypertension, proteinuria. Review of Systems: Denies chest pain, palpitations, syncope. Physical Examination: General: Not in acute distress. Eyes: Anicteric sclerae. EOMI. Ears, Nose, Mouth and Throat: Oral mucosa moist. No pallor. Neck: Supple. No bruits. Extremities: No edema. Laboratory Data: Sodium 132, potassium 4.2, bicarbonate 23, creatinine 3.5, GFR 18. CK level at 150 0. Urinalysis, specific gravity 1.019. Impression And Plan: 1.Acute kidney injury, multifactorial, secondary to prerenal azotemia superimposed with DAVID inhibito r and hydrochlorothiazide and the patient has rhabdomyolysis and severe volume depletion. Subsequent ly, he was found to have acute kidney injury, which is of multifactorial etiology. The patient is on IV fluids with normal saline. He tolerated IV fluids. Rhabdomyolysis is complicated by acute kidne y injury. Follow up CK level. Monitor electrolytes closely. Check phosphorus level. 2.Hypertension. Blood pressure is controlled. Hold blood pressure medication and hold DAVID inhibito r and hydrochlorothiazide due to hypovolemia and borderline hypotension. 3.Rhabdomyolysis. Continue IV fluids and monitor CK level. 4.Hyponatremia, depletional. The patient is on normal saline for hydration. EB/MODL Voice ID: [id number] Report ID: [id number]
--- NOTE | 2024-02-17 10:36 | EKG ---
Test Date: 2024-02-13 Test Time: 13:39:14 Medical Services Manager: SERENA MEASUREMENT RESULTS: Intervals: Rate: 99 LA: 140 QRSD: 82 QT: 342 QTc: 438 [place]: P: 67 LA: 140 QRS: 51 T: 66 INTERPRETIVE STATEMENTS: Normal sinus rhythm Normal ECG Compared to ECG 09/15/2023 04:23:23 No significant changes Electronically Signed On 02-17-24 10:35:21 CDT by Yonis Stinson
== END 2024-02-15 11:00 | disposition home or self-care (01) | DRG 923 ==
LOC: ER 12:50 → ERHOLD 16:50 → 4TH 18:07 → OBSVTOIN 02-15 09:21
PROVIDERS: ADMIT Hospitalist; ATTEND Hospitalist
DX: T67.5XXA Heat exhaustion, unspecified, initial encounter (principal); N17.9 Acute kidney failure, unspecified; M62.82 Rhabdomyolysis; E87.1 Hypo-osmolality and hyponatremia; E86.0 Dehydration; I12.9 Hypertensive chronic kidney disease with stage 1 through stage 4 chronic kidney disease, or unspecified chronic kidney disease; N18.9 Chronic kidney disease, unspecified; E66.9 Obesity, unspecified; Z68.38 Body mass index [BMI] 38.0-38.9, adult; Z90.49 Acquired absence of other specified parts of digestive tract
CPT/HCPCS: 36415; 71045; 74176; 76377; 80048; 80061; 80076; 81001; 82550; 82570; 82947; 83735; 83880; 83970; 84100; 84156; 84484; 84550; 85025; 93005; 96360; 99285; J7030